=== PATIENT | male | born 1955 | race Caucasian/White ===

== ENCOUNTER 2019-07-16 11:04 | Inpatient (IN) ==
[2019-07-16 11:16] LABS: Basophils # (auto) 0.09 K/uL (0-0.2); Basophils % (auto) 1.1 %; Eosinophils # (auto) 0.19 K/uL (0-0.5); Eosinophils % (auto) 2.3 %; Hematocrit (blood only) 48.9 % (42-52); Hemoglobin 17.8 g/dL (14.0-18.0); Immature Granulocytes # (auto) 0.01 K/uL (0.00-0.02); Immature Granulocytes % (auto) 0.1 %; Lymphocytes # (auto) 2.68 K/uL (1.2-3.4); Lymphocytes % (auto) 32.5 %; Mean Corpuscular Hemoglobin 31.2 pg (25-34); Mean Corpuscular Hgb Conc 36.4 g/dL (32-36); Mean Corpuscular Volume 85.6 fL (80-100); Mean Platelet Volume 10.4 fL (7.4-10.4); Monocytes # (auto) 0.56 K/uL (0.11-0.59); Monocytes % (auto) 6.8 %; Neutrophils # (auto) 4.72 K/uL (1.4-6.5); Neutrophils % (auto) 57.2 %; Platelet Count 260 K/uL (130-400); RDW Coefficient of Variation 13.6 % (11.5-14.5); RDW Standard Deviation 42.5 fL (36.4-46.3); Red Blood Count 5.71 M/uL (4.7-6.1); White Blood Count 8.25 K/uL (4.8-10.8)
--- NOTE | 2019-07-16 11:17 | CT Scan Report ---
CT OF THE HEAD WITHOUT CONTRAST CLINICAL HISTORY: Stroke evaluation slurred speech. Right hand numbness. COMPARISON STUDY: No previous studies for comparison. CT DOSE: 537.48 mGy.cm TECHNIQUE: Helical axial images of the head were obtained without IV contrast. Automated exposure con trol was utilized for the study. A dose lowering technique was utilized adhering to the principles o f ALARA. FINDINGS: No acute intracranial hemorrhage, midline shift or mass effect is present. The ventricular system is unremarkable. The basilar cisterns are patent. No extra-axial collections are present. Ther e are no findings to suggest acute dural sinus thrombosis or acute territorial infarct. No significan t calvarial abnormalities are present. Visualized portions of the sinuses and mastoid air cells are c lear. Mild atrophy is noted. IMPRESSION: No acute intracranial findings. ACT 112: Negative or not required by law. Electronically signed by: Oneal Christianson M.D. 07/16/2019 11:16 AM
[2019-07-16 11:31] LABS: Partial Thromboplastin Time 27.1 Seconds (21.0-31.0); Prothrombin Time 10.2 Seconds (9.0-12.0)
[2019-07-16] MEDS ORDERED: TPA for Stroke IV STA (11:34)
[2019-07-16 11:41] LABS: Alanine Aminotransferase 29 U/L (12-78); Alkaline Phosphatase 107 U/L (45-117); BUN Creatinine Ratio 18.1 (10-20); Bilirubin,Total 0.5 mg/dl (0.2-1); Blood Urea Nitrogen 19 mg/dl (7-18); Calcium 9.3 mg/dl (8.5-10.1); Carbon Dioxide 21 mmol/L (21-32); Chloride 105 mmol/L (98-107); Creatinine Clr Calc Pharmacy 90.4 ml/min; Est GFR (African American) 86.1; Est GFR (Non-African American) 74.3; Globulin 4.1 gm/dl (2.5-4.0); Glucose 299 mg/dl (70-99); Sodium 135 mmol/L (136-145); Total Protein 8.1 gm/dl (6.4-8.2); Troponin I < 0.015 ng/ml (0-0.045)
[2019-07-16 11:43] LABS: Potassium 3.9 mmol/L (3.5-5.1)
[2019-07-16] MEDS ORDERED: Alteplase Bolus 9 MG in SYRINGE 0 ML IV ONE (11:44)
[2019-07-16] MEDS ORDERED: PRIMARY PLUMSET, PE LINED TUBING, 113 IN, NON-DEHP (2260-0500) IV ONE (11:45)
[2019-07-16] MEDS ORDERED: ALTEPLASE, RECOMBINANT 81 MG in EMPTY BAG 0 ML IV ONE (11:45)
[2019-07-16 11:48] LABS: Magnesium 1.8 mg/dl (1.8-2.4)
[2019-07-16] MEDS ORDERED: OPTIRAY 320 125ml IV PRN (12:18)
--- NOTE | 2019-07-16 12:42 | CT Scan Report ---
CT angio head w con, CT angio neck with con CLINICAL HISTORY: 64 years-old Male with stroke, R hand issues. Acute strokelike symptoms COMPARISON STUDY: Head CT of same day TECHNIQUE: Following the IV administration of 120 cc of Optiray 320, CT angiogram of the head and nec k was performed. Images are reviewed in the axial, sagittal, and coronal planes. 3-D MIPS images are created and assessed. IV contrast was administered without complication. All measurements were obtain ed according to NASCET criteria. A dose lowering technique was utilized adhering to the principles of ALARA. CT DOSE: 674.23 mGy.cm FINDINGS: The opacified pulmonary arteries unremarkable. Moderate mixed plaque of the thoracic aortic arch. Patency of the imaged bilateral subclavian arteries. Motion degraded exam. Patent common carot id arteries. Moderate mixed plaque of the carotid bulbs and proximal internal carotid arteries. There is less than 50% luminal narrowing of the proximal right ICA. Atheromatous plaque with filling defec t of the proximal cervical segment left ICA, image 270 series 4 measures up to 6 mm including a cauda l dimension on the coronal reformatted images suspicious for atheromatous plaque with possible free-f loating thrombus/unstable plaque component. There is focal area of 65% luminal narrowing noted at thi s level. By ratios limited secondary to previously mentioned motion artifact. Moderate mixed plaque o f the cavernous segments internal carotid arteries without high-grade stenosis. The bilateral middle and anterior cerebral arteries appear patent. Bilateral vertebral arteries are patent and appear unremarkable. No aneurysm, dissection or proximal branch occlusion. Basilar and posterior cerebral arteries appear patent. Cerebral venous sinuses appe ar patent. There is no abnormal enhancement. Bronchial wall thickening of the lung apices. No pneumothorax. Emphysema. Soft tissues appear unremar kable. Degenerative changes of the spine. IMPRESSION: 1. Motion degraded exam. 2. Moderate mixed plaque of the bilateral carotid bulbs. Within the proximal cervical segment left IC A there is eccentric/unstable plaque versus free floating thrombus measuring up to 6 mm in craniocaud al dimension resulting in 65% luminal narrowing. 3. Otherwise unremarkable CTA of the neck as above. ACT 112: Negative or not required by law. The above report was generated using voice recognition software. It may contain grammatical, syntax o r spelling errors. Electronically signed by: Anson Echeverria M.D. 07/16/2019 12:41 PM
--- NOTE | 2019-07-16 12:43 | Electrocardiogram Report ---
Test Reason : Blood Pressure : / mmHG Vent. Rate : 111 BPM Atrial Rate : 111 BPM P-R Int : 176 ms QRS Dur : 116 ms QT Int : 350 ms P-R-T Axes : 061 031 054 degrees QTc Int : 476 ms Sinus tachycardia Inferior infarct , age undetermined Poor R wave progression, consider anterior LA vs. lead placement vs. LVH Abnormal ECG No previous ECGs available Confirmed by Meng Roy ([id number]) on 07/16/2019 12:42:55 PM Referred By: Confirmed By:Meng Roy
--- NOTE | 2019-07-16 12:47 | History & Physical Report ---
Date of Service July 16, 2019 Assessment & Plan (1) CVA (cerebral vascular accident): Teletroke call in ER. S/P tPA. Admit to ICU - discussed case with Dr Cook Day 1 s/p tPA stroke protocol orders entered CT head - no acute intracranial findings Head/Neck CTA - unstable plaque vs. thrombus in left ICA resulting in 65% luminal narrowing (probable cause of CVA) - discussed with Dr Ulloa (recommended discussing with telestroke) and [place] [facility]; patient felt to have significantly improved dysarthria, no new symptoms. Recommend getting CEA on this admission. ASA + Plavix loading doses at 24 hours. Consider clopidogrel failure enzyme variation testing. Recommend transfer if patient having new symptoms or if vascular request transfer to not perform endarterectomy here. quality assurance monitor final to assess for any a. fib TTE will defer till tomorrow Start atorvastatin 80mg PO daily MRI brain w/ w/o contrast pending (2) Internal carotid artery stenosis: As above. Consult vascular surgery. (3) Type 2 diabetes mellitus: Poorly controlled as per his PCP on glipizide and metformin (placed on hold). HbA1C pending. Consult glycemic control - started on insulin drip. (4) Current smoker: Smoking cessation advice given. Nicotine patch 21mg/24hrs. Education packets ordered (5) Coronary artery disease: Restart ASA after 24 hours, start atorvastatin as above. Consider BB if remains tachycardic despite adequate hydration. (6) DVT prophylaxis: Chemical prophylaxis deferred until 24 hours s/p tPA. SCDs (7) Discharge planning issues: PT/OT/Speech History of Present Illness Chief Complaint: Stroke-like symptoms Primary Care Provider: Connor Bauer MD (based in [place], [place]) Carl Martinez is a 64 year old male smoker with type 2 diabetes who presented to the ER with right hand numbness and weakness slurred speech which started after throwing/tying tarps over his truck at around 9:30am today. He reports never having similar symptoms before and no known stroke in the past but PA approximately 10 years ago. Current smoker 1.5 packs/day and uncontrolled diabetes as risk factors. Since coming to the ER he has noticed some mild improvement in his right arm weakness but no real change in his speech. He takes an aspirin a day ever since his PA but not on statin. He also notes a recent fall 2 week prior when he slipped backwards on the ice and fell on his left arm/chest for which he did not seek medical attention. He did not hit his head or neck directly but resultant whiplash action caused neck pain since then with only some mild improvement. Discussed with his primary care physician (Dr Connor Bauer) on vacation although his office is closed currently and no one has access to his chart from memory he notes the patient is a poorly controlled diabetic mainly due to lack of insurance and ability to pay for medication. He had an PA with emergent stent approximately 10 years ago. He is a heavy smoker. Element of COPD however not on any regular inhalers due to cost. Allergies Allergy/AdvReac Type Severity Reaction Status Date / Time Penicillins Allergy Unknown Unverified 07/16/19 12:09 Home Medications Home Medications Medication Instructions Recorded Confirmed Type aspirin 81 mg PO DAILY 07/16/19 07/16/19 History glipizide 10 mg PO DAILY 07/16/19 07/16/19 History metformin 1,000 mg PO BID 07/16/19 07/16/19 History Past Med/Surg History Medical History (Updated 07/16/19 @ 18:29 by Arcenio Cotton MD) Coronary artery disease Current smoker Internal carotid artery stenosis Myocardial infarction Type 2 diabetes mellitus Surgical History H/O umbilical hernia repair History of cardiac cath History of heart artery stent Family History Other No significant family history Social History Preferred Language: Uzbek Communication Ability: Effective Beliefs That Will Affect Care: Spiritual marital status: Single Current Living Situation: Alone current occupational status: employed Other Information That Helps Us Care for You: No Feels Safe at Home: Yes Safety Concerns: Feels Safe At This Time Smoking Status: Current every day smoker Tobacco Type: cigarettes ; Cigarettes Per Day: 30 ; Tobacco Cessation Education Requested by Patient: No Hx Alcohol Use: No Hx Substance Use: No Review of Systems Review of Systems: All systems reviewed & are unremarkable except as noted in HPI & below Constitutional: + fever (two days ago with associated URI Sx now resolved) Physical Exam Constitutional: well developed, well nourished, + obese and + disheveled; no acute distress Eyes: PERRL, conjunctivae normal, anicteric sclerae ENMT: external ear and nose normal, oropharynx normal Neck: trachea midline, no thyromegaly Respiratory: normal respiratory effort, lungs clear to auscultation Auscultation: no crackles and no wheezes Cardiovascular: RRR, no murmur, no edema Gastrointestinal (Abdomen): normal bowel sounds, soft, nontender, no hepatosplenomegaly Musculoskeletal: Spine: + cervical muscular tenderness (left proximal) Skin: no rashes, warm and dry Neurologic: + focal motor deficit (right wrist flex/ext 1, finger abduc 1, thumb abduc 1, elbow flex/ext 5) and awake; not confused Speech / Cognition: + abnormal speech (dysarthria; difficulty with with mama, deepti < kaka with normal VII otherwis); no receptive aphasia Motor/Sensory: + pronator drift (right) and + sensory deficit (right hand in no one nerve distribution); no tremor Cranial Nerves: PERRL, normal accommodation, EOM intact bilaterally, normal facial strength, able to rotate head bilaterally, able to elevate shoulders bilaterally and no nystagmus Coordination: + abnormal funkkl-gw-mamg test (right due to hand weakness); normal liqd-en-snai test Normal left UE power 5/5 throughout, b/l lower extremity power 5/5 throughout Results & Data Vital Signs (Past 12 Hours) Vital Signs Temp Pulse Pulse Resp BP BP Pulse Ox 07/16/19 12:38 98 H 17 139/80 93 07/16/19 12:30 37.3 C 104 H 24 154/93 H 93 07/16/19 12:23 103 H 07/16/19 12:08 110 H 14 148/94 H 93 07/16/19 11:53 108 H 20 154/79 H 92 07/16/19 11:43 110 H 16 132/84 94 07/16/19 11:41 116 H 18 132/84 94 07/16/19 11:32 95 07/16/19 11:18 36.9 C 111 H 20 136/85 95 Code Status & VTE Plan Code Status Full VTE Prophylaxis Plan VTE Prophylaxis will be ordered: Yes Reason for no VTE drug order: Contraindicated (tPA administered) PG Care Time/CCT Total # of Minutes Spent Total Time Spent with Patient: Total time spent is greater than 50% in coordination of care (as documented) at patient's floor/unit and/or counseling patient: Coding Level of Care Code 50022 Initial Inpt Care Lvl 3 Diagnoses CVA (cerebral vascular accident) I63.9 CVA mechanism: unspecified Internal carotid artery stenosis I65.22 Laterality: left Type 2 diabetes mellitus E11.59 Diabetes mellitus complication detail: with other circulatory complications Diabetes mellitus complication status: with circulatory complication 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 transplanted heart: [place] heart DVT prophylaxis Z29.9 Discharge planning issues Z02.9 (1) Type 2 diabetes mellitus Diabetes mellitus complication detail: with other circulatory complications Diabetes mellitus complication status: with circulatory complication Diabetes mellitus halfway insulin use: without vermin exterminator use Qualified Code(s): E11.59 - Type 2 diabetes mellitus with other circulatory complications (2) Coronary artery disease Associated angina: without angina Coronary Disease-Associated Artery/Lesion type: [place] artery [place] vs. transplanted heart: [place] heart Qualified Code(s): I25.10 - Atherosclerotic heart disease of [place] coronary artery without angina pectoris (3) Internal carotid artery stenosis Laterality: left Qualified Code(s): I65.22 - Occlusion and stenosis of left carotid artery (4) CVA (cerebral vascular accident) CVA mechanism: unspecified Qualified Code(s): I63.9 - Cerebral infarction, unspecified
[2019-07-16] MEDS ORDERED: PHARMACY GLYCEMIC MGMT CONSULT STA (13:40)
[2019-07-16] MEDS ORDERED: NICOTINE POLACRILEX 2 MG GUM MT PRN (13:51)
[2019-07-16] MEDS ORDERED: ICU PROTOCOL FOR HYPERGLYCEMIA PRN (13:51)
[2019-07-16] MEDS ORDERED: PHARMACIST DISCHARGE MED REC CONSULT PRN (13:55)
[2019-07-16] MEDS ORDERED: PHARMACY GLYCEMIC MGMT CONSULT PRN (14:24)
[2019-07-16 14:58] LABS: Estimated Average Glucose 255 mg/dl; Hemoglobin A1C 10.5 % (4.5-5.6)
[2019-07-16] MEDS ORDERED: INSULIN PROTOCOL GOAL RANGE ONE (14:59)
[2019-07-16] MEDS ORDERED: CARBOHYDRATES FOR HYPOGLYCEMIA PO PRN (15:00)
[2019-07-16] MEDS ORDERED: GLUCOSE 40% GEL 15 GM TUBE PO PRN (15:00)
[2019-07-16] MEDS ORDERED: GLUCAGON FOR INJ 1 MG VIAL IM PRN (15:00)
[2019-07-16] MEDS ORDERED: DEXTROSE 50% 50 ML SYRINGE IV PRN (15:00)
[2019-07-16] MEDS ORDERED: GLUCOSE 10 TABS/TUBE PO PRN (15:00)
[2019-07-16] MEDS ORDERED: NovoLIN-R BOLUS FROM BAG IV ONE (15:15)
[2019-07-16] MEDS ORDERED: INSULIN REGULAR 250 UNITS in SODIUM CHLORIDE 0.9% 247.5 ML IV SCH (15:16)
[2019-07-16] MEDS: NICOTINE 21 MG/24 HR TDSY TD SCH (15:21)
[2019-07-16] MEDS: ATORVASTATIN 40 MG TAB PO SCH (15:22)
--- NOTE | 2019-07-16 15:23 | Pharmacy Report ---
Pharmacy Glycemic Short Note 2 - Date of Service July 16, 2019 - Glycemic Short BSG Results (Last 24 hours): 07/16/19 07/16/19 07/16/19 10:40 11:22 14:16 Glucose 299 H POC Glucose 316 H* 275 H OUTPATIENT ANTIDIABETIC REGIMEN: * Glipizide 10mg PO daily * Metformin 1gm PO BID * A1c = ? ASSESSMENT: * Type 2 diabetic admitted for ischemic stroke, now s/p tPA and admitted to ICU * BSGs in the 300s at this time * Pt currently is currently NPO * Will initiate IV insulin drip per protocol at this time given significant hyperglycemia and need for tight glycemic control in the setting of stroke. Quick control of hyperglycemia and avoidance of hypoglycemia can best be accomplished with IV insulin infusion PLAN FOR INPATIENT GLYCEMIC CONTROL: * Check A1c * Hold outpatient oral diabetes medications (metformin + glipizide) * IV insulin infusion, goal range 120-180mg/dL PLAN FOR DISCHARGE: * to be determined
--- NOTE | 2019-07-16 16:02 | Pulmonary Consultation ---
Date of Consultation July 16, 2019 Assessment & Plan (1) CVA (cerebral vascular accident): We will follow the TPA day 1 and day 2 stroke pathway. Will need physical and Occupational Therapy. Will need speech evaluation. N.p.o. for today. Sliding scale insulin given his history of diabetes mellitus. Maintain blood pressure as per post TPA protocol. May need a vascular consult in the future given his internal carotid luminal irregularities. Needs complete smoking cessation. Will be started on aspirin and Plavix tomorrow. CT had 24 hours post TPA will need to be obtained. MRI of the head will also need to be obtained. Echo tomorrow. He is stable currently in the ICU. Continue current care. CRITICAL CARE TIME - I have personally spent 30 minutes of critical care time in the direct management of this patient. This is a life/limb threatening event. This includes time spent evaluating patient, direct bedside care, chart review, placing orders, interpretation of diagnostic studies, discussion with consultants, patient, and family members, as well as other required patient management activities. This time is exclusive of all separately billable procedures, and teaching time and separate from and in addition to any other critical care service time. CVA mechanism: unspecified Qualified Code(s): I63.9 - Cerebral infarction, unspecified (2) Coronary artery disease: Coronary Disease-Associated Artery/Lesion type: [place] artery [place] vs. transplanted heart: [place] heart Associated angina: without angina Qualified Code(s): I25.10 - Atherosclerotic heart disease of [place] coronary artery without angina pectoris (3) Current smoker: (4) Type 2 diabetes mellitus: Diabetes mellitus residential insulin use: without manager intermediate use Diabetes mellitus complication status: with circulatory complication Diabetes mellitus complication detail: with other circulatory complications Qualified Code(s): E11.59 - Type 2 diabetes mellitus with other circulatory complications (5) Internal carotid artery stenosis: History of Present Illness Reason for Consultation: Stroke status post TPA Requesting Physician: Arcenio Cotton Attending Physician: Arcenio Cotton MD History of Present Illness This is an 64-year-old male with a past medical history of tobacco abuse, type 2 diabetes mellitus, obesity and coronary artery disease who presents to the hospital due to right extremity weakness and dysarthria. Patient notes that around 9:30 in the morning he was working throwing tarps on his truck and felt that he had numbness in his right upper extremity. He noticed that his hand was weak. He went to the emergency department and then noticed that he had slurring of his speech. He denies any chest pain, shortness of breath or nausea associated with the symptoms. He does note that about a month ago he had flulike symptoms. He denies any current fevers or chills. He is uncertain whether his symptoms improved after TPA. He did have a CT of his head which was negative for any acute bleed. He received TPA at 11:39 PM. He received a CTA of his head and neck which demonstrated 65% luminal narrowing of the left internal carotid artery. He also had a floating thrombus that was visualized. [facility] tele-stroke was contacted. He was noted that he had improvement dysarthria after TPA administration. Currently he continues to have right upper extremity weakness with some dysarthria. He smokes roughly 1-1/2 packs/day for the last 50 years. He does have chronic mild shortness of breath with occasional cough. He says he was never formally diagnosed with COPD. He denies any history of obstructive sleep apnea. He lives with his mother. 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 Allergies Allergy/AdvReac Type Severity Reaction Status Date / Time Penicillins Allergy Unknown Unverified 07/16/19 12:09 Home Medications Home Medications Medication Instructions Recorded Confirmed Type aspirin 81 mg PO DAILY 07/16/19 07/16/19 History glipizide 10 mg PO DAILY 07/16/19 07/16/19 History metformin 1,000 mg PO BID 07/16/19 07/16/19 History Patient History Medical History Coronary artery disease Current smoker Myocardial infarction Type 2 diabetes mellitus Surgical History H/O umbilical hernia repair History of cardiac cath History of heart artery stent Family History Other No significant family history Social History Preferred Language: [place]an Communication Ability: Effective Beliefs That Will Affect Care: Spiritual marital status: Single Current Living Situation: Alone current occupational status: employed Other Information That Helps Us Care for You: No Feels Safe at Home: Yes Safety Concerns: Feels Safe At This Time Smoking Status: Current every day smoker Tobacco Type: cigarettes ; Cigarettes Per Day: 30 ; Tobacco Cessation Education Requested by Patient: No Hx Alcohol Use: No Hx Substance Use: No Review of Systems Review of Systems: All systems reviewed & are unremarkable except as noted in HPI & below Physical Exam Constitutional: well developed Long hair. Moreno in place. No apparent distress. Laying on his left side in the ICU bed. Eyes: PERRL, conjunctivae normal, anicteric sclerae ENMT: external ear and nose normal, oropharynx normal Right facial droop noted Neck: normal visual inspection Respiratory: normal respiratory effort, lungs clear to auscultation Cardiovascular: RRR, no murmur, no edema Gastrointestinal (Abdomen): normal bowel sounds, soft, nontender, no hepatosplenomegaly Musculoskeletal: no cyanosis or clubbing, extremities motor strength 5/5 Skin: no rashes, warm and dry Neurologic: Right upper extremity weakness. Approximately 3 out of 5 strength. Some dysarthria. No expressive or receptive aphasia apparent. Psychiatric: A+Ox3, euthymic affect Lymphatic: no lymphadenopathy Results & Data ([facility]) Vital Signs (Past 12 Hours) Vital Signs Temp Pulse Pulse Pulse Resp BP BP 07/16/19 15:38 98.1 F 99 H 95 H 18 138/82 138/82 07/16/19 15:23 98.4 F 95 H 18 138/82 07/16/19 15:08 97.9 F 108 H 18 143/84 H 07/16/19 14:43 97.9 F 90 18 142/91 H 07/16/19 14:38 97.9 F 97 H 18 130/88 07/16/19 14:08 97.9 F 99 H 18 127/81 07/16/19 13:38 95 H 18 152/96 H 07/16/19 13:23 99 H 19 131/95 07/16/19 13:08 108 H 22 142/91 H 07/16/19 12:53 101 H 94 H 140/82 07/16/19 12:38 98 H 17 139/80 07/16/19 12:30 99.1 F 104 H 24 154/93 H 07/16/19 12:23 103 H 07/16/19 12:08 110 H 14 148/94 H 07/16/19 11:53 108 H 20 154/79 H 07/16/19 11:43 110 H 16 132/84 07/16/19 11:41 116 H 18 132/84 07/16/19 11:32 07/16/19 11:18 98.4 F 111 H 20 136/85 Pulse Ox 07/16/19 15:38 91 07/16/19 15:23 91 07/16/19 15:08 95 07/16/19 14:43 92 07/16/19 14:38 96 07/16/19 14:08 93 07/16/19 13:38 96 07/16/19 13:23 97 07/16/19 13:08 97 07/16/19 12:53 94 07/16/19 12:38 93 07/16/19 12:30 93 07/16/19 12:23 07/16/19 12:08 93 07/16/19 11:53 92 07/16/19 11:43 94 07/16/19 11:41 94 07/16/19 11:32 95 07/16/19 11:18 95 I personally reviewed his relevant imaging, labs and vital signs. PG Care Time/CCT Total # of Minutes Spent Total Time Spent with Patient: Total time spent is greater than 50% in coordination of care (as documented) at patient's floor/unit and/or counseling patient: Critical Care Time: Yes Total Critical Care Time: 30 Coding Level of Care Code None Diagnoses CVA (cerebral vascular accident) I63.9 CVA mechanism: unspecified Coronary artery disease I25.10 Coronary Disease-Associated Artery/Lesion type: [place] artery [place] vs. transplanted heart: [place] heart Associated angina: without angina Current smoker F17.200 Type 2 diabetes mellitus E11.59 Diabetes mellitus residential insulin use: without residential use Diabetes mellitus complication status: with circulatory complication Diabetes mellitus complication detail: with other circulatory complications Internal carotid artery stenosis I65.29 Additional Codes Critical Care Time - Critical Care Time: Yes ([id number]) Time Spent (min) 30
[2019-07-16] MEDS ORDERED: ACETAMINOPHEN SOL 650 MG/20.3 ML UDC PO PRN (16:41)
[2019-07-16] MEDS ORDERED: ACETAMINOPHEN 325 MG TAB ONE (16:50)
--- NOTE | 2019-07-16 16:50 | Emergency Department Note ---
Entered by Farida Murcia acting as a scribe for Perfecto Lozano M.D. History of Present Illness General Chief complaint: Stroke Alert Source: patient History of Present Illness Onset (ago): hour(s) 1 (and 21 minutes ago) Location: head Pain Consistency: + other (episode) Quality: + other (stroke) Associated symptoms: + denies other symptoms (left arm weakness, left leg weakness, right leg weakness, numbness, vision changes), + weakness (right arm) and + other (slurred speech); no chest pain, no headaches and no nausea/vomiting The patient is a 64 year old male who presents to the Emergency Room with complaints of an episode of a stroke starting an hour and 21 minutes ago. 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 He states that he was tying down his load when he suddenly had right arm weakness and slurred speech. He states that he was unable to really do anything with his right arm. He notes that he did fall on the ice a few weeks ago and hurt his neck, but that is nothing new. He notes that he also had the flu about 2 weeks ago, but his symptoms have resolved. He notes that he takes 81 mg of Aspirin a day and is right handed. The patient denies left arm weakness, left leg weakness, right leg weakness, numbness, chest pain, nausea, vomiting, headache, vision changes, a history of recent surgeries, and a history of a stroke. Home Medications Home Medications Medication Instructions Recorded Confirmed Type aspirin 81 mg PO DAILY 07/16/19 07/16/19 History glipizide 10 mg PO DAILY 07/16/19 07/16/19 History metformin 1,000 mg PO BID 07/16/19 07/16/19 History Allergies Allergy/AdvReac Type Severity Reaction Status Date / Time Penicillins Allergy Unknown Unverified 07/16/19 12:09 Past Med/Surg History Medical History (Updated 07/16/19 @ 16:50 by Perfecto Lozano M.D.) Coronary artery disease Current smoker Internal carotid artery stenosis Myocardial infarction Type 2 diabetes mellitus Surgical History H/O umbilical hernia repair History of cardiac cath History of heart artery stent Family History Other No significant family history Social History Preferred Language: [place]er Communication Ability: Effective Beliefs That Will Affect Care: Spiritual marital status: Single Current Living Situation: Alone current occupational status: employed Other Information That Helps Us Care for You: No Feels Safe at Home: Yes Safety Concerns: Feels Safe At This Time Smoking Status: Current every day smoker Tobacco Type: cigarettes ; Cigarettes Per Day: 30 ; Tobacco Cessation Education Requested by Patient: No Hx Alcohol Use: No Hx Substance Use: No Review of Systems See HPI for pertinent positives & negatives. and A total of 10 systems reviewed and were otherwise negative Physical Exam Vital Signs Vital Signs - 24 hr 07/16/19 11:18 07/16/19 11:32 07/16/19 11:41 Temperature 36.9 C Temperature Source Oral Pulse Rate 111 H Pulse Rate [Radial] 116 H Pulse Rhythm Regular Pulse Rhythm [Radial] Regular Pulse Strength Normal Respiratory Rate 20 18 Respiratory Effort / Characteristics Non-Labored Non-Labored Respiratory Depth Normal Normal Respiratory Pattern Regular Blood Pressure 136/85 Blood Pressure [Left Arm] 132/84 Blood Pressure Mean 102 Blood Pressure Mean [Left Arm] 100 Blood Pressure Position [Left Arm] Pulse Oximetry 95 95 94 Oxygen Delivery Method Room Air Room Air Room Air Oxygen Flow Rate 93 Sepsis Recent Fever Within 48 Hours No Sepsis New/Unexplained Change in Mental Status No Sepsis Action Taken by Nursing No Action Required 07/16/19 11:43 07/16/19 11:53 07/16/19 12:08 Temperature Temperature Source Pulse Rate Pulse Rate [Radial] 110 H 108 H 110 H Pulse Rhythm Pulse Rhythm [Radial] Pulse Strength Respiratory Rate 16 20 14 Respiratory Effort / Characteristics Non-Labored Non-Labored Respiratory Depth Normal Normal Normal Respiratory Pattern Regular Blood Pressure Blood Pressure [Left Arm] 132/84 154/79 H 148/94 H Blood Pressure Mean Blood Pressure Mean [Left Arm] 100 104 112 Blood Pressure Position [Left Arm] Sitting Pulse Oximetry 94 92 93 Oxygen Delivery Method Room Air Room Air Oxygen Flow Rate Sepsis Recent Fever Within 48 Hours Sepsis New/Unexplained Change in Mental Status Sepsis Action Taken by Nursing 07/16/19 12:23 07/16/19 12:30 07/16/19 12:38 Temperature 37.3 C Temperature Source Oral Pulse Rate Pulse Rate [Radial] 103 H 104 H 98 H Pulse Rhythm Pulse Rhythm [Radial] Pulse Strength Respiratory Rate 24 17 Respiratory Effort / Characteristics Non-Labored Spontaneous Non-Labored Respiratory Depth Normal Normal Respiratory Pattern Blood Pressure Blood Pressure [Left Arm] 154/93 H 139/80 Blood Pressure Mean Blood Pressure Mean [Left Arm] 113 99 Blood Pressure Position [Left Arm] Sitting Sitting Pulse Oximetry 93 93 Oxygen Delivery Method Room Air Oxygen Flow Rate Sepsis Recent Fever Within 48 Hours Sepsis New/Unexplained Change in Mental Status Sepsis Action Taken by Nursing GENERAL: Awake, alert, well-appearing, in no distress HENT: Normocephalic, atraumatic. Oropharynx unremarkable. EYES: Normal conjunctiva. Sclera non-icteric. PERRL. NECK: Supple. No nuchal rigidity. RESPIRATORY: Clear to auscultation. No wheezes. Normal respiratory effort. CARDIAC: Tachycardic rate. Normal rhythm. Extremities warm and well perfused. GI: Soft, non-distended. No tenderness to palpation. RECTAL: Deferred. MUSCULOSKELETAL: Atraumatic. Chest examination reveals no tenderness. LOWER EXTREMITIES: Calves are equal size bilaterally and non-tender. No edema NEURO: Mildly slurred speech. No pronator drift. Decreased strength in the right hand and distal forearm, not involving the right shoulder. Intact strength and sensation to lower extremities. SKIN: Warm and dry. No jaundice noted. Course Course 1106: The patient was evaluated in room B1. Patient was sent directly to CT. 1112: Patient returned from CT. A complete history and physical exam was performed. 1114: I discussed the patient's case with Dr. Christianson- Radiology. He states that the patient has a normal head CT. 1115: I discussed the patient's case with Dr. Sierra Nhi Neurology. He is going to evaluate the patient via telestroke. 1134: I reevaluated the patient and spoke to Dr. Briseno. We are all in agreement to administer TPA at this time. It was given at this time. 1136: I reevaluated the patient and he is doing okay. I updated him on his test results and the treatment plan. He verbally agrees and understands. 1223: I discussed the patient's case with Dr. Cook- Engineering Surveyor. He accepts the patient to the unit and will evaluate the patient for further management. 1229: I discussed the patient's case with Dr. Lula SEYMOUR Hospitalist. He will evaluate the patient for further management. 1341: I reevaluated the patient and he is being moved to the unit now. Administered Medications Atorvastatin Calcium (Lipitor) 80 mg PO [facility] Stop: 08/15/19 14:14 Last Admin: 07/16/19 15:22 Dose: 80 mg Documented by: [id number] Insulin Human Regular 250 (units/ Sodium Chloride) 250 mls @ 2.9 mls/hr IV .Q24H [facility], 1928–1983; Protocol Stop: 08/15/19 15:15 Last Admin: 07/16/19 16:04 Dose: 2.9 units/hr, 2.9 mls/hr Documented by: [id number] Cosigned by: [id number] Ioversol (Optiray 320 125ml) 120 ml IV ONCE PRN PRN Reason: Interaction Checking Stop: 07/20/19 12:17 Last Admin: 07/16/19 12:18 Dose: 120 ml Documented by: [id number] Nicotine (Nicoderm Cq) 21 mg TD [facility] Stop: 08/15/19 13:50 Last Admin: 07/16/19 15:21 Dose: 21 mg Documented by: [id number] Discontinued Medications Alteplase, Recombinant (Activase For Stroke) 1 ea IV NOW [facility]; Protocol Stop: 07/16/19 11:35 Last Admin: 07/16/19 12:48 Dose: Not Given Documented by: [id number] Alteplase, Recombinant 9 mg/ (Syringe) 9 mls @ 9 mls/min IV ONCE ONE Stop: 07/16/19 11:45 Last Admin: 07/16/19 11:38 Dose: 9 mls/min Documented by: [id number] Cosigned by: [id number] Alteplase, Recombinant 81 mg/ (EMPTY BAG) 81 mls @ 81 mls/hr IV ONCE ONE Stop: 07/16/19 11:46 Last Infusion: 07/16/19 13:01 Dose: 0 mls/hr Documented by: [id number] Cosigned by: [id number] Admin: 07/16/19 11:39 Dose: 81 mls/hr Documented by: [id number] Cosigned by: [id number] Insulin Human Regular (Novolin R Bolus From Bag) 3 units IV ONE ONE Stop: 07/16/19 15:16 Last Admin: 07/16/19 16:08 Dose: 3 units Documented by: [id number] Cosigned by: [id number] Miscellaneous (Insulin Protocol Goal Range) 1 ea N/A ONE ONE Stop: 07/16/19 15:00 Last Admin: 07/16/19 16:08 Dose: 1 ea Documented by: [id number] Miscellaneous Information (Consult Glycemic Management Pharmacy) 1 ea N/A NOW STA Stop: 07/16/19 13:41 Last Admin: 07/16/19 16:09 Dose: 1 ea Documented by: [id number] Critical Care Time Critical Care Time: Yes Total Critical Care Time: 37 I have personally spent 37 minutes of critical care time in the direct management of this patient. This includes bedside care, interpretation of diagnostic studies, and testing, discussion with consultants, patient, and family members, and other required patient management activities. This 37 minutes is in excess of all separately billable procedures. Medical Decision Making Differential Diagnosis Differential Diagnosis includes but is not limited to ischemic Stroke, hemorrhagic stroke, bells palsy, mass, neoplasm, migraine headache, seizure, subarachnoid hemorrhage, TIA, and transient global amnesia. Medical Records Attestation: I reviewed the patient's medical records. Home Medications Current Medication List: was personally reviewed by me Laboratory Data Attestation: I reviewed the patient's lab results. Result diagrams: 07/16/19 10:40 07/16/19 10:40 Lab Results 07/16/19 07/16/19 07/16/19 Range/Units 10:40 10:40 10:40 WBC 8.25 (4.8-10.8) K/uL RBC 5.71 (4.7-6.1) M/uL Hgb 17.8 (14.0-18.0) g/dL Hct 48.9 (42-52) % MCV 85.6 (80-100) fL MCH 31.2 (25-34) pg MCHC 36.4 H (32-36) g/dL RDW Std Deviation 42.5 (36.4-46.3) fL RDW Coeff of Sheron 13.6 (11.5-14.5) % Plt Count 260 (130-400) K/uL MPV 10.4 (7.4-10.4) fL Immature Gran % (Auto) 0.1 % Neut % (Auto) 57.2 % Lymph % (Auto) 32.5 % [place] % (Auto) 6.8 % Eos % (Auto) 2.3 % Baso % (Auto) 1.1 % Immature Gran # (Auto) 0.01 (0.00-0.02) K/uL Neut # (Auto) 4.72 (1.4-6.5) K/uL Lymph # (Auto) 2.68 (1.2-3.4) K/uL [place] # (Auto) 0.56 (0.11-0.59) K/uL Eos # (Auto) 0.19 (0-0.5) K/uL Baso # (Auto) 0.09 (0-0.2) K/uL PT 10.2 (9.0-12.0) Seconds INR 1.0 (0.9-1.1) APTT 27.1 (21.0-31.0) Seconds PTT Ratio 1.0 Sodium 135 L (136-145) mmol/L Potassium (3.5-5.1) mmol/L Chloride 105 (98-107) mmol/L Carbon Dioxide 21 (21-32) mmol/L Anion Gap 10.0 (3-11) BUN 19 H (7-18) mg/dl Creatinine 1.06 (0.6-1.4) mg/dl Est Cr Clr Drug Dosing 90.4 ml/min Est GFR ( Amer) 86.1 Est GFR (Non-Af Amer) 74.3 BUN/Creatinine Ratio 18.1 (10-20) Glucose 299 H (70-99) mg/dl POC Glucose (70-99) mg/dl Estimat Average Glucose mg/dl Hemoglobin A1c (4.5-5.6) % Calcium 9.3 (8.5-10.1) mg/dl Magnesium (1.8-2.4) mg/dl Total Bilirubin 0.5 (0.2-1) mg/dl AST (15-37) U/L ALT 29 (12-78) U/L Alkaline Phosphatase 107 (45-117) U/L Troponin I < 0.015 (0-0.045) ng/ml Total Protein 8.1 (6.4-8.2) gm/dl Albumin 4.0 (3.4-5.0) gm/dl Globulin 4.1 H (2.5-4.0) gm/dl Albumin/Globulin Ratio 1.0 (0.9-2) Blood Type Antibody Screen 07/16/19 07/16/19 07/16/19 Range/Units 10:40 10:40 11:17 WBC (4.8-10.8) K/uL RBC (4.7-6.1) M/uL Hgb (14.0-18.0) g/dL Hct (42-52) % MCV (80-100) fL MCH (25-34) pg MCHC (32-36) g/dL RDW Std Deviation (36.4-46.3) fL RDW Coeff of Sheron (11.5-14.5) % Plt Count (130-400) K/uL MPV (7.4-10.4) fL Immature Gran % (Auto) % Neut % (Auto) % Lymph % (Auto) % [place] % (Auto) % Eos % (Auto) % Baso % (Auto) % Immature Gran # (Auto) (0.00-0.02) K/uL Neut # (Auto) (1.4-6.5) K/uL Lymph # (Auto) (1.2-3.4) K/uL [place] # (Auto) (0.11-0.59) K/uL Eos # (Auto) (0-0.5) K/uL Baso # (Auto) (0-0.2) K/uL PT (9.0-12.0) Seconds INR (0.9-1.1) APTT (21.0-31.0) Seconds PTT Ratio Sodium (136-145) mmol/L Potassium 3.9 (3.5-5.1) mmol/L Chloride (98-107) mmol/L Carbon Dioxide (21-32) mmol/L Anion Gap (3-11) BUN (7-18) mg/dl Creatinine (0.6-1.4) mg/dl Est Cr Clr Drug Dosing ml/min Est GFR ( Amer) Est GFR (Non-Af Amer) BUN/Creatinine Ratio (10-20) Glucose (70-99) mg/dl POC Glucose (70-99) mg/dl Estimat Average Glucose 255 mg/dl Hemoglobin A1c 10.5 H (4.5-5.6) % Calcium (8.5-10.1) mg/dl Magnesium 1.8 (1.8-2.4) mg/dl Total Bilirubin (0.2-1) mg/dl AST 11 L (15-37) U/L ALT (12-78) U/L Alkaline Phosphatase (45-117) U/L Troponin I (0-0.045) ng/ml Total Protein (6.4-8.2) gm/dl Albumin (3.4-5.0) gm/dl Globulin (2.5-4.0) gm/dl Albumin/Globulin Ratio (0.9-2) Blood Type A Positive Antibody Screen NEGATIVE 07/16/19 Range/Units 11:22 WBC (4.8-10.8) K/uL RBC (4.7-6.1) M/uL Hgb (14.0-18.0) g/dL Hct (42-52) % MCV (80-100) fL MCH (25-34) pg MCHC (32-36) g/dL RDW Std Deviation (36.4-46.3) fL RDW Coeff of Sheron (11.5-14.5) % Plt Count (130-400) K/uL MPV (7.4-10.4) fL Immature Gran % (Auto) % Neut % (Auto) % Lymph % (Auto) % [place] % (Auto) % Eos % (Auto) % Baso % (Auto) % Immature Gran # (Auto) (0.00-0.02) K/uL Neut # (Auto) (1.4-6.5) K/uL Lymph # (Auto) (1.2-3.4) K/uL [place] # (Auto) (0.11-0.59) K/uL Eos # (Auto) (0-0.5) K/uL Baso # (Auto) (0-0.2) K/uL PT (9.0-12.0) Seconds INR (0.9-1.1) APTT (21.0-31.0) Seconds PTT Ratio Sodium (136-145) mmol/L Potassium (3.5-5.1) mmol/L Chloride (98-107) mmol/L Carbon Dioxide (21-32) mmol/L Anion Gap (3-11) BUN (7-18) mg/dl Creatinine (0.6-1.4) mg/dl Est Cr Clr Drug Dosing ml/min Est GFR ( Amer) Est GFR (Non-Af Amer) BUN/Creatinine Ratio (10-20) Glucose (70-99) mg/dl POC Glucose 316 H* (70-99) mg/dl Estimat Average Glucose mg/dl Hemoglobin A1c (4.5-5.6) % Calcium (8.5-10.1) mg/dl Magnesium (1.8-2.4) mg/dl Total Bilirubin (0.2-1) mg/dl AST (15-37) U/L ALT (12-78) U/L Alkaline Phosphatase (45-117) U/L Troponin I (0-0.045) ng/ml Total Protein (6.4-8.2) gm/dl Albumin (3.4-5.0) gm/dl Globulin (2.5-4.0) gm/dl Albumin/Globulin Ratio (0.9-2) Blood Type Antibody Screen Imaging Data Radiologist's Impression: Radiology results as stated below per my review and the radiologist's interpretation: CT OF THE HEAD WITHOUT CONTRAST CLINICAL HISTORY: Stroke evaluation slurred speech. Right hand numbness. COMPARISON STUDY: No previous studies for comparison. CT DOSE: 537.48 mGy.cm TECHNIQUE: Helical axial images of the head were obtained without IV contrast. Automated exposure control was utilized for the study. A dose lowering technique was utilized adhering to the principles of ALARA. FINDINGS: No acute intracranial hemorrhage, midline shift or mass effect is present. The ventricular system is unremarkable. The basilar cisterns are patent. No extra-axial collections are present. There are no findings to suggest acute dural sinus thrombosis or acute territorial infarct. No significant calvarial abnormalities are present. Visualized portions of the sinuses and mastoid air cells are clear. Mild atrophy is noted. IMPRESSION: No acute intracranial findings. ACT 112: Negative or not required by law. Electronically signed by: Oneal Christianson M.D. 07/16/2019 11:[address] angio head w con, CT angio neck with con CLINICAL HISTORY: 64 years-old Male with stroke, R hand issues. Acute strokelike symptoms COMPARISON STUDY: Head CT of same day TECHNIQUE: Following the IV administration of 120 cc of Optiray 320, CT angiogram of the head and neck was performed. Images are reviewed in the axial, sagittal, and coronal planes. 3-D MIPS images are created and assessed. IV contrast was administered without complication. All measurements were obtained according to NASCET criteria. A dose lowering technique was utilized adhering to the principles of ALARA. CT DOSE: 674.23 mGy.cm FINDINGS: The opacified pulmonary arteries unremarkable. Moderate mixed plaque of the thoracic aortic arch. Patency of the imaged bilateral subclavian ar teries. Motion degraded exam. Patent common carotid arteries. Moderate mixed plaque of the carotid bulbs and proximal internal carotid arteries. There is less than 50% luminal narrowing of the proximal right ICA. Atheromatous plaque with filling defect of the proximal cervical segment left ICA, image 270 series 4 measures up to 6 mm including a caudal dimension on the coronal reformatted images suspicious for atheromatous plaque with possible free-floating thrombus/unstable plaque component. There is focal area of 65% luminal narrowing noted at this level. By ratios limited secondary to previously mentioned motion artifact. Moderate mixed plaque of the cavernous segments internal carotid art eries without high-grade stenosis. The bilateral middle and anterior cerebral arteries appear patent. Bilateral vertebral arteries are patent and appear unremarkable. No aneurysm, dissection or proximal branch occlusion. Basilar and posterior cerebral arteries appear patent. Cerebral venous sinuses appear patent. There is no abnormal enhancement. Bronchial wall thickening of the lung apices. No pneumothorax. Emphysema. Soft tissues appear unremarkable. Degenerative changes of the spine. IMPRESSION: 1. Motion degraded exam. 2. Moderate mixed plaque of the bilateral carotid bulbs. Within the proximal cervical segment left ICA there is eccentric/unstable plaque versus free floating thrombus measuring up to 6 mm in craniocaudal dimension resulting in 65% luminal narrowing. 3. Otherwise unremarkable CTA of the neck as above. ACT 112: Negative or not required by law. The above report was generated using voice recognition software. It may contain grammatical, syntax or spelling errors. Electronically signed by: Anson Echeverria M.D. 07/16/2019 12:41 PM ECG Data Attestation: I personally reviewed and interpreted this ECG as follows: Indication: + weakness Rate (beats per minute): 111 Rhythm: + sinus tachycardia ECG Gonzales: + Normal ECG ST segments: no ST depression and no ST elevation ECG Findings: no PVCs Blood Pressure Blood Pressure Findings: Elevated blood pressure Blood Pressure Disposition: further management by hospitalist CARMELITA Narrative Patient is a 64-year-old gentleman with a history of cardiac disease and diabetes presenting via EMS as a stroke alert. Around 945a was okay and then developed sudden onset slurred speech and right hand weakness. No trauma or other fevers reported. Patient denies trauma. Moving the right upper arm okay in the lower extremities. No pronator drift. Some mild dysarthria but no real aphasia. Patient without significant facial droop. Right hand is flaccid. Left upper extremity is working well. CT the head stroke alert protocol was without acute finding. Discussed with Nhi tele-stroke. Initially there was some report that he had some left facial numbness but patient later denied this. Tele-stroke completed given concern for stroke risk and benefits discussed patient TPA administered. CTAs of the head and neck were completed. Basic labs without acute pathology. Patient will require admission for further evaluation status post TPA. CTAs do show ICA intramural thrombus requiring further vascular consultation in the future. Impression & Plan Stroke, Weakness of right hand Discharge Plan Visit Data *Final* Discharge Date/Time: 07/16/19 13:40 Chief Complaint: Stroke Alert ED Provider: Perfecto Lozano Discharge Problem: Stroke, Weakness of right hand Patient Disposition: Admitted As Inpatient Discharge Instructions Interventions: ED Discharge Assessment Last Done: 07/16/19 13:40 Discharge Problem: Stroke Qualifiers: CVA mechanism: unspecified Qualified Code(s): I63.9 - Cerebral infarction, unspecified The scribe's documentation has been prepared under my direction and personally reviewed by me in its entirety. I confirm that the note above accurately reflects all work, treatment, procedures, and medical decision making performed by me.
[2019-07-16] MEDS: INSULIN ASPART 100 UNITS/ML 3 ML PEN SC SCH ×2 (17:11→20:50)
[2019-07-16] MEDS: LACTATED RINGER'S 1,000 ML IV SCH (18:52)
[2019-07-16] MEDS ORDERED: GADOBUTROL 65ML VIAL IV PRN (20:20)
--- NOTE | 2019-07-16 20:39 | Magnetic Resonance Report ---
MRI OF THE BRAIN COMBO CLINICAL HISTORY: Strokelike symptoms. Right hand numbness. COMPARISON STUDY: CT of the brain dated 07/16/2019. TECHNIQUE: MRI of the brain was performed utilizing various T1 and T2-weighted sequences in the axial , sagittal, and coronal planes. Contrast-enhanced sequences were acquired following the administratio n of 8 cc of Gadavist. FINDINGS: Brain parenchyma: There is age-related involutional change noting mild subcortical and periventricula r microangiopathic disease. There are numerous small foci of restricted diffusion identified in the l eft frontal and parietal cortex consistent with acute to subacute ischemia. There is no hemorrhage or mass effect. No enhancing mass lesion is identified on the postcontrast images. No extra-axial fluid collection is seen. The cerebellar tonsils are normal in configuration. Ventricles, sulci, and cisterns: Prominent secondary to involutional change. Pituitary and sella: Unremarkable. Intracranial vasculature: Normal flow voids are maintained at the skull base. Orbits: The bony orbits are grossly intact. Orbital contents are normal in appearance. Sinuses and mastoids: Clear. Calvarium: Unremarkable. Cervical cord: Partially visualized cervical spinal cord is normal in morphology and signal intensity . IMPRESSION: 1. There are numerous small foci of restricted diffusion identified in the left frontal and parietal cortex consistent with acute to subacute ischemia. 2. There is no hemorrhage or mass effect. ACT 112: Negative or not required by law. Electronically signed by: Allen Joya M.D. 07/16/2019 8:38 PM
--- NOTE | 2019-07-16 20:56 | XRay Report ---
SINGLE VIEW CHEST CLINICAL HISTORY: Stroke. Fall. FINDINGS: An AP, portable, upright chest radiograph is obtained. No prior studies are available for c omparison at the time of dictation. The examination is degraded by portable technique and patient rot ation. The heart is top normal for projection. There is fullness of the pulmonary vasculature. Atele ctasis is seen at the lung bases. No airspace consolidation or large pleural effusion is identified. No pneumothorax is seen. The skeletal structures are osteopenic. The bony thorax is grossly intact. IMPRESSION: 1. There is prominence of the pulmonary vasculature. Correlate clinically for evidence of mild conges tive failure. 2. No airspace consolidation or large pleural effusion is identified. ACT 112: Negative or not required by law. Electronically signed by: Allen Joya M.D. 07/16/2019 8:54 PM
--- NOTE | 2019-07-17 07:21 | Hospitalist Progress Note ---
Date of Service July 17, 2019 Assessment & Plan (1) CVA (cerebral vascular accident): Continue stroke protocol; Continue ICU; Patient switched from atorvastatin to Zetia 10 mg p.o. daily because he tried 3 various statins and had several days after ingestion severe issues with his lower extremities and ability to walk. Patient reports having a muscle pains after taking statins. Patient tries simvastatin, pravastatin, and Crestor. CT scan of the head repeated and negative; Case discussed with Dr. Villalba who recommended endarterectomy tomorrow p.m. N.p.o. after midnight for the Dr. Villalba's procedure. Continue aspirin 81mg P.O. for 3 weeks and start loading dose of Plavix 300 mg p.o. x1 and then 75 mg p.o. daily indefinitely unless side effects with bleeding and bruising or hemorrhaging. Continue cafeteria monitor; TTE: Left ventricular systolic function is normal. No regional wall motion abnormality noted. Ejection fraction 50 to 55%. Injection of contrast documented no intra-arterial shunt. (2) Internal carotid artery stenosis: As above. Consult vascular surgery. (3) Type 2 diabetes mellitus: Poorly controlled as per his PCP on glipizide and metformin (placed on hold). HbA1C pending. Consult glycemic control - started on insulin drip. (4) Current smoker: Smoking cessation advice given. Nicotine patch 21mg/24hrs. Education packets ordered (5) Coronary artery disease: Restart ASA after 24 hours, start atorvastatin as above. Consider BB if remains tachycardic despite adequate hydration. (6) DVT prophylaxis: Chemical prophylaxis deferred until 24 hours s/p tPA. SCDs (7) Discharge planning issues: PT/OT/Speech Subjective . Patient seen and examined at the bedside. He is now under ICU care multifocal acute ischemic infarcts within the left cerebral hemisphere related to a hemodynamically significant stenosis of the left internal carotid artery/carotid embolism with possibly elements of watershed infarcts as well. Patient received TPA in the emergency department. His aphasia is improving today and he is able to speak fully without issues. He said that his right upper extremity still has some weakness but he cannot lifted revealing fully and move it. The strength in the right hand is decreased. Patient reports that there is no issues with his lower extremities. Patient does not have face droop. P.o. intake is good. Patient denies any signs of bleeding either melena, hematemesis, hemoptysis, nosebleed, hematuria, or hematochezia. Patient denies fever, chills, chest pain, shortness of breath, abdominal pain, frequency, urgency. Review of Systems Review of Systems: All systems reviewed & are unremarkable except as noted in HPI & below Physical Exam Constitutional: well developed, well nourished, + obese and + disheveled; no acute distress Eyes: PERRL, conjunctivae normal, anicteric sclerae ENMT: external ear and nose normal, oropharynx normal Neck: trachea midline, no thyromegaly normal visual inspection Respiratory: normal respiratory effort, lungs clear to auscultation Auscultation: no crackles and no wheezes Cardiovascular: RRR, no murmur, no edema Gastrointestinal (Abdomen): normal bowel sounds, soft, nontender, no hepatosplenomegaly Musculoskeletal: no cyanosis or clubbing, extremities motor strength 5/5 Spine: + cervical muscular tenderness (left proximal) Skin: no rashes, warm and dry Neurologic: + focal motor deficit (right wrist flex/ext 1, finger abduc 1, thumb abduc 1, elbow flex/ext 5-improving) and awake; not confused Speech / Cognition: + abnormal speech (dysarthria; difficulty with with mama, deepti < kaka with normal VII otherwis); no receptive aphasia Motor/Sensory: + pronator drift (right) and + sensory deficit (right hand in no one nerve distribution); no tremor Cranial Nerves: PERRL, normal accommodation, EOM intact bilaterally, normal facial strength, able to rotate head bilaterally, able to elevate shoulders bilaterally and no nystagmus Coordination: + abnormal oudois-ix-ruuj test (right due to hand weakness); normal vhum-yv-pron test Psychiatric: A+Ox3, euthymic affect Lymphatic: no lymphadenopathy Results & Data ([facility]) Vital Signs (Past 12 Hours) Vital Signs Temp Pulse Resp BP Pulse Ox 07/17/19 06:38 84 18 123/70 93 07/17/19 05:38 69 16 119/76 93 07/17/19 04:38 36.7 C 73 18 112/74 95 07/17/19 03:38 71 18 114/67 90 07/17/19 02:38 83 18 120/72 94 07/17/19 01:38 78 16 124/72 91 07/17/19 00:38 70 18 112/63 89 L 07/16/19 23:38 36.6 C 71 16 98/61 L 90 07/16/19 22:38 81 18 124/75 92 07/16/19 21:38 85 18 120/96 94 07/16/19 20:38 36.7 C 89 18 127/75 93 07/16/19 19:38 91 H 18 127/72 91 PG Care Time/CCT Total # of Minutes Spent Total Time Spent with Patient: Total time spent is greater than 50% in coordination of care (as documented) at patient's floor/unit and/or counseling patient: Coding Level of Care Code 41803 Subseq Hosp Care Lvl 3 Diagnoses CVA (cerebral vascular accident) I63.9 CVA mechanism: unspecified Internal carotid artery stenosis I65.22 Laterality: left Type 2 diabetes mellitus E11.59 Diabetes mellitus complication detail: with other circulatory complications Diabetes mellitus complication status: with circulatory complication 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 transplanted heart: [place] heart DVT prophylaxis Z29.9 Discharge planning issues Z02.9 (1) Type 2 diabetes mellitus Diabetes mellitus complication detail: with other circulatory complications Diabetes mellitus complication status: with circulatory complication Diabetes mellitus [facility] insulin use: without [facility] use Qualified Code(s): E11.59 - Type 2 diabetes mellitus with other circulatory complications (2) Coronary artery disease Associated angina: without angina Coronary Disease-Associated Artery/Lesion type: [place] artery [place] vs. transplanted heart: [place] heart Qualified Code(s): I25.10 - Atherosclerotic heart disease of [place] coronary artery without angina pectoris (3) Internal carotid artery stenosis Laterality: left Qualified Code(s): I65.22 - Occlusion and stenosis of left carotid artery (4) CVA (cerebral vascular accident) CVA mechanism: unspecified Qualified Code(s): I63.9 - Cerebral infarction, unspecified
[2019-07-17] MEDS: LACTATED RINGER'S 1,000 ML IV SCH (07:24)
[2019-07-17] MEDS ORDERED: INSULIN GLARGINE SOLOSTAR 100 UNITS/ML 3 ML PEN SC ONE (08:00)
[2019-07-17] MEDS: ATORVASTATIN 40 MG TAB PO SCH (08:16)
[2019-07-17] MEDS ORDERED: ASPIRIN 81 MG ECTAB PO SCH (09:00)
--- NOTE | 2019-07-17 09:05 | Critical Care Progress Note ---
Date of Service July 17, 2019 Assessment & Plan (1) CVA (cerebral vascular accident): Continue post TPA protocol. Day [address] head will be obtained this afternoon. Will start Plavix 24 hours after TPA. MRI is consistent with stroke. Patient will need vascular intervention for internal carotid artery stenosis and possible endarterectomy. I did discuss smoking cessation with him as well. Expect that he may be able to move out of the ICU later today. He will need continued physical therapy and Occupational Therapy. (2) Coronary artery disease: (3) Current smoker: (4) Type 2 diabetes mellitus: (5) Internal carotid artery stenosis: Subjective Patient speech is much improved today. He still complains of right hand and arm weakness. He has no chest pain. He denies any fevers, chills, night sweats or nausea. Physical Exam Constitutional: well developed Eyes: PERRL, conjunctivae normal, anicteric sclerae ENMT: external ear and nose normal, oropharynx normal Neck: normal visual inspection Respiratory: normal respiratory effort, lungs clear to auscultation Cardiovascular: RRR, no murmur, no edema Gastrointestinal (Abdomen): normal bowel sounds, soft, nontender, no h epatosplenomegaly Musculoskeletal: no cyanosis or clubbing, extremities motor strength 5/5 Skin: no rashes, warm and dry Neurologic: Speech is greatly improved from yesterday. He continues to have 1 out of 5 weakness in the right hand and arm. Psychiatric: A+Ox3, euthymic affect Lymphatic: no lymphadenopathy Results & Data ([facility]) Vital Signs (Past 12 Hours) Vital Signs Temp Pulse Resp BP Pulse Ox 07/17/19 06:38 84 18 123/70 93 07/17/19 05:38 69 16 119/76 93 07/17/19 04:38 98.1 F 73 18 112/74 95 07/17/19 03:38 71 18 114/67 90 07/17/19 02:38 83 18 120/72 94 07/17/19 01:38 78 16 124/72 91 07/17/19 00:38 70 18 112/63 89 L 07/16/19 23:38 97.9 F 71 16 98/61 L 90 07/16/19 22:38 81 18 124/75 92 07/16/19 21:38 85 18 120/96 94 Coding Level of Care Code 66751 Subseq Hosp Care Lvl 2 Diagnoses CVA (cerebral vascular accident) I63.9 CVA mechanism: unspecified Coronary artery disease I25.10 Coronary Disease-Associated Artery/Lesion type: [place] artery [place] vs. 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
--- NOTE | 2019-07-17 09:21 | Pharmacy Report ---
Pharmacy Glycemic Short Note 2 - Date of Service July 17, 2019 - Glycemic Short BSG Results (Last 24 hours): 07/16/19 07/16/19 07/16/19 10:40 11:22 14:16 Glucose 299 H POC Glucose 316 H* 275 H 07/16/19 07/16/19 07/16/19 16:07 17:04 18:03 Glucose POC Glucose 240 H 203 H 225 H 07/16/19 07/16/19 07/16/19 19:04 20:41 21:48 Glucose POC Glucose 187 H 168 H 205 H 07/16/19 07/17/19 07/17/19 22:43 00:05 01:16 Glucose POC Glucose 183 H 135 H 138 H 07/17/19 07/17/19 07/17/19 02:08 03:23 04:59 Glucose POC Glucose 158 H 130 H 142 H 07/17/19 07:18 Glucose POC Glucose 171 H OUTPATIENT ANTIDIABETIC REGIMEN: * Glipizide 10mg PO daily * Metformin 1gm PO BID * A1c = 10.5% ASSESSMENT: 07/17 * A1c resulted, consistent w/ poor glycemic control prior to admission on outpt oral hypoglycemic regimen * Insulin drip continues this AM, running at 2.5units/hr and BSGs in goal range * Pt is ordered a diet, will begin to transition to SQ regimen at this time * Initial basal/bolus regimen doses will be based upon moderate stress level and weight 2/ * Type 2 diabetic admitted for ischemic stroke, now s/p tPA and admitted to ICU * BSGs in the 300s at this time * Pt is currently NPO * Will initiate IV insulin drip per protocol at this time given significant hyperglycemia and need for tight glycemic control in the setting of stroke. Quick control of hyperglycemia and avoidance of hypoglycemia can best be accomplished with IV insulin infusion PLAN FOR INPATIENT GLYCEMIC CONTROL: * Hold outpatient oral diabetes medications (metformin + glipizide) * Lantus 20 units x 1 * Discontinue IV insulin drip 4 hrs after Lantus given (drip to dc at lunchtime) * Lantus SQ BID per the following scale initially: * 0 units if BSG less than 120 * 10 units if BSG 120-180 * 15 units if BSG above 180 * Novolog SQ ACHS and at 0000 + 0400 initially * Goal range: 110-140mg/dL * Correction factor: 20mg/dL * Carb ratio: 1 unit per 7 gm CHO consumed with meals PLAN FOR DISCHARGE: * given poor glycemic control with outpt regimen, A1c greater than 10 and recent stroke, one should consider the use of metformin + basal insulin + (GLP1-Ag or prandial insulin) on discharge.
--- NOTE | 2019-07-17 09:50 | Neurology Consultation ---
Date of Consultation July 17, 2019 Assessment & Plan (1) Stroke: Multifocal acute ischemic infarcts within the left cerebral hemisphere related to a hemodynamically significant stenosis of the left internal carotid artery/carotid embolism with possibly elements of watershed infarcts as well. Patient received TPA in the emergency department. He continues to exhibit an aphasia although this issue is modestly improved. He continues to exhibit significant weakness of the distal right upper extremity, not much improvement status post TPA. Stroke risk factors for this patient include diabetes mellitus which appears to be suboptimally controlled and long-term heavy cigarette smoking. Antiplatelet therapy should be started 24 hours after administration of TPA. Clopidogrel would be appropriate. Follow-up with vascular surgery consultation. In speaking with the patient it sounds like there are plans for carotid endarterectomy to be done this Monday. I agree with high-dose atorvastatin at this time. However, patient does inform me that he has a history of intolerance to multiple statin trials in the past. Tolerability will need to be monitored going forward. Continue to monitor patient's blood pressure. Current blood pressure appropriate. Avoid aggressive treatment of hypertension to lower the risk of hypoperfusion injury. Continue management of hyperglycemia related to patient's diabetes mellitus. Smoking cessation will need to be stressed with this patient. 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 Patient aware of this potential outcome. Consultations with PT/OT/speech therapy. Plan for repeat CT of the head today to reassess for hemorrhagic conversion following administration of TPA. History of Present Illness Reason for Consultation: Stroke, status post TPA Requesting Physician: Arcenio Cotton MD Attending Physician: Analisa Rice MD History of Present Illness The patient is a 64-year-old male with a chief complaint of weakness of the ri ght hand and arm which began acutely about 80 minutes prior to his arrival in the emergency department. 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 He also noticed that he was having difficulty with speech/word finding when attempting to make a call for help. He does not report having any weakness of the legs and was able to stand at the time of symptom onset. There was no associated loss of consciousness, fall, or injury. He does not report experiencing any associated disturbance of vision. His symptoms were persistent and noted at the time of his assessment in the emergency department. His blood pressure was only slightly elevated. Past medical history notable for coronary artery disease/[place] and type 2 diabetes mellitus complicated by mild diabetic peripheral neuropathy. He reports a history of intolerance to statins. His physicians are in [place]. He does take glipizide and metformin for his diabetes. He also takes a daily low-dose aspirin. His serum glucose has been elevated since admission. A CT of the head completed during his initial assessment was negative for hemorrhage or acute process. CT angiography of the head and neck revealed a plaque/thrombus within the proximal cervical segment of the left internal carotid artery resulting in 65% luminal narrowing. The patient did have a tele-stroke consultation and was administered TPA. The patient indicates that his speech difficulty has significantly improved although he continues to report significant weakness of the right hand. He also complains of a low-grade headache, primarily left occipital region. Vascular surgery has been consulted for probable left carotid endarterectomy. Allergies Allergy/AdvReac Type Severity Reaction Status Date / Time Penicillins Allergy Unknown Unverified 07/16/19 12:09 Home Medications Home Medications Medication Instructions Recorded Confirmed Type aspirin 81 mg PO DAILY 07/16/19 07/16/19 History glipizide 10 mg PO DAILY 07/16/19 07/16/19 History metformin 1,000 mg PO BID 07/16/19 07/16/19 History Patient History Medical History Coronary artery disease Current smoker Internal carotid artery stenosis Myocardial infarction Type 2 diabetes mellitus Surgical History H/O umbilical hernia repair History of cardiac cath History of heart artery stent Family History (Updated 07/17/19 @ 09:28 by Brain Ulloa MD) Father Coronary heart disease Other No significant family history Social History Preferred Language: [place] Communication Ability: Effective Beliefs That Will Affect Care: Spiritual marital status: Single Current Living Situation: Alone current occupational status: employed Other Information That Helps Us Care for You: No Feels Safe at Home: Yes Safety Concerns: Feels Safe At This Time Smoking Status: Current every day smoker Tobacco Type: cigarettes ; Cigarettes Per Day: 30 ; Tobacco Cessation Education Requested by Patient: No Hx Alcohol Use: No Hx Substance Use: No Review of Systems Constitutional: no fever, no chills and no fatigue Eyes: no blind spots and no diplopia Ear, Nose, Mouth, Throat: no hearing loss Respiratory: no cough and no dyspnea Cardiovascular: no chest pain and no palpitations Gastrointestinal: no nausea and no vomiting Genitourinary: + urinary incontinence Musculoskeletal: no neck pain and no myalgia Integumentary: no rash and no lesions Neurologic: as per Subjective / HPI, + localized weakness, + headache(s) and + abnormal speech; no confusion and no memory loss Psychiatric: no depression and no anxiety Hematologic / Lymphatic: no easy bleeding and no easy bruising Physical Exam Physical Exam: The patient is a well-developed, well-nourished elderly male. He is alert and fully oriented. Recent and remote memory intact. Attention and concentration normal. Patient exhibits mild hesitancy with object naming and casual speech. He is able to repeat phrases. He exhibited some left right confusion, no finger agnosia or acalculia, however. Fund of knowledge normal. Comprehension of vocabulary intact. Visual churchill full to confrontation. Visual acuity normal. Pupils equal round reactive to light and accommodation. Eye movements normal. There is no nystagmus, ptosis, or ophthalmoplegia. Facial sensation intact. There is a right lower facial droop noted. Hearing intact. Palate elevates to midline. Shoulder shrug intact. Tongue protrudes to midline. There is a mild length dependent deficit to all sensory modalities, most notable at the feet and ankles. No gross hemisensory deficit. Deep tendon reflexes are diffusely diminished, absent at the Achilles tendons. The right plantar responses equivocal, left plantar response downgoing. Patient displays an element of dysmetria [id number]-pk-flmt on the right, none on the left, none with bojo-qw-inrp bilaterally. Ophthalmoscopic examination reveals normal-appearing optic disks and posterior segments. No papilledema or hemorrhages. Carotid pulses normal bilaterally, no bruits to auscultation. Gait and station not tested due to safety concerns. Evaluation of muscle strength reveals weakness of the right upper extremity, especially distally with an apparent wrist drop as well as weakness of intrinsic hand muscles and orthotic assistant strength. Biceps and triceps strength relatively preserved for the right upper limb. Strength for the left arm as well as both legs within normal limits. Tone normal throughout with the exception of the distal right upper limb with a flaccid appearing wrist drop. No atrophy. No abnormal movements observed. Results & Data Vital Signs (Past 12 Hours) Vital Signs Temp Pulse Resp BP Pulse Ox 07/17/19 06:38 84 18 123/70 93 07/17/19 05:38 69 16 119/76 93 07/17/19 04:38 36.7 C 73 18 112/74 95 07/17/19 03:38 71 18 114/67 90 07/17/19 02:38 83 18 120/72 94 07/17/19 01:38 78 16 124/72 91 07/17/19 00:38 70 18 112/63 89 L 07/16/19 23:38 36.6 C 71 16 98/61 L 90 07/16/19 22:38 81 18 124/75 92 07/16/19 21:38 85 18 120/96 94 Laboratory Results WBC 8.25, hemoglobin 17.8, hematocrit 48.9, platelet count 260, sodium 135, potassium 3.9, BUN 19, creatinine 1.06, glucose 299, hemoglobin A1c 10.5, calcium 9.3, magnesium 1.[address] of the head completed at the time of presentation was negative for hemorrhage or acute process. There is an element of frontal atrophy. No hydrocephalus. I reviewed the images as well as the radiologist interpretation of this test. CT angiography of the head and neck reveals moderate mixed plaque of the carotid bulbs with a plaque versus free-floating thrombus within the proximal cervical segment of the left internal carotid artery resulting in 65% luminal narrowing. I reviewed the images as well as the radiologist interpretation of this test. MRI of the brain reveals several foci of acute ischemic infarct within the left cerebral hemisphere, specifically within the left frontal and parietal cortices, possibly consistent with watershed distribution, as well as an acute ischemic infarct in the high left parietal cortex. I reviewed the images as well as the radiologist interpretation of this test. An electrocardiogram reveals sinus tachycardia, 111 bpm PG Care Time/CCT Total # of Minutes Spent Total Time Spent with Patient: Total time spent is greater than 50% in coordination of care (as documented) at patient's floor/unit and/or counseling patient: Coding Level of Care Code 56296 Inpt Consult Level 5 Diagnoses Stroke I63.9 CVA mechanism: unspecified (1) Stroke CVA mechanism: unspecified Qualified Code(s): I63.9 - Cerebral infarction, unspecified
[2019-07-17] MEDS: INSULIN ASPART 100 UNITS/ML 3 ML PEN SC SCH ×4 (10:08→21:19)
[2019-07-17] MEDS: NICOTINE 21 MG/24 HR TDSY TD SCH (10:49)
[2019-07-17] MEDS: UMECLIDINIUM BROMIDE 62.5MCG/BLISTER 7 PUFFS/INHALER INH SCH (10:50)
--- NOTE | 2019-07-17 11:44 | CT Scan Report ---
CT head/brain wo con CLINICAL HISTORY: 64 years-old Male presenting with 24 hr s/p tpa. TECHNIQUE: Multidetector CT imaging of the head was performed without the use of intravenous contrast . IV contrast: None. One or more dose lowering techniques were used consistent with the principles of ALARA (as low as reasonably achievable), including automatic exposure control, mA or kV adjustment t o individual patient size, and/or use of iterative reconstruction. COMPARISON: 07/16/2019. CT DOSE (mGy.cm): The estimated cumulative dose is 638.56 mGycm. FINDINGS: Injection Molding Operator topogram: Unremarkable. Ventricles and sulci normal in size. No hemorrhage. Brain parenchyma normal in appearance with preser lola santillan-white differentiation. No acute territorial infarct. No mass effect or midline shift. No ext ra-axial fluid collection. Paranasal sinuses and mastoid air cells clear. Calvarium intact. IMPRESSION: 1. No acute intracranial abnormality. ACT 112: Negative or not required by law. Electronically signed by: Christian Goncalves M.D. 07/17/2019 11:42 AM
[2019-07-17 12:00] LABS: Basophils # (auto) 0.07 K/uL (0-0.2); Basophils % (auto) 0.6 %; Eosinophils # (auto) 0.21 K/uL (0-0.5); Eosinophils % (auto) 1.9 %; Hemoglobin 17.6 g/dL (14.0-18.0); Immature Granulocytes # (auto) 0.01 K/uL (0.00-0.02); Immature Granulocytes % (auto) 0.1 %; Lymphocytes # (auto) 2.54 K/uL (1.2-3.4); Lymphocytes % (auto) 22.5 %; Mean Corpuscular Hemoglobin 30.3 pg (25-34); Mean Corpuscular Hgb Conc 34.5 g/dL (32-36); Mean Corpuscular Volume 87.8 fL (80-100); Mean Platelet Volume 10.7 fL (7.4-10.4); Monocytes # (auto) 0.64 K/uL (0.11-0.59); Monocytes % (auto) 5.7 %; Neutrophils % (auto) 69.2 %; Platelet Count 238 K/uL (130-400); RDW Coefficient of Variation 13.8 % (11.5-14.5); RDW Standard Deviation 44.1 fL (36.4-46.3); Red Blood Count 5.81 M/uL (4.7-6.1); White Blood Count 11.27 K/uL (4.8-10.8)
[2019-07-17] MEDS ORDERED: [UNRECOGNIZED DRUG - REMARK] ONE (12:00)
[2019-07-17 12:28] LABS: Albumin Level 3.7 gm/dl (3.4-5.0); BUN Creatinine Ratio 14.7 (10-20); Calcium 9.3 mg/dl (8.5-10.1); Creatinine Clr Calc Pharmacy 116.9 ml/min; Est GFR (African American) 109.1; Est GFR (Non-African American) 94.1; Magnesium 2.1 mg/dl (1.8-2.4); Potassium 3.9 mmol/L (3.5-5.1)
[2019-07-17] MEDS ORDERED: INSULIN ASPART 100 UNITS/ML 3 ML PEN SC STA (12:33)
[2019-07-17 12:39] LABS: Bilirubin,Total 0.5 mg/dl (0.2-1); Globulin 3.8 gm/dl (2.5-4.0); Phosphorus 2.7 mg/dl (2.5-4.9); Total Protein 7.5 gm/dl (6.4-8.2)
--- NOTE | 2019-07-17 12:53 | XCELERA ---
[id number] \\[id number]\[id number]
--- NOTE | 2019-07-17 13:18 | Anesthesiology Consultation ---
Date of Service July 17, 2019 Assessment & Plan (1) Encounter for pre-operative examination: Chart Review Chart Review: Acceptable Risk for Surgery (patient is high risk but surgery is urgent) and Patient NOT seen in Pre Admission Testing Consults Requested none neurology following History Surgery Operation Date: 07/18/19 13:00 Proposed Procedures p Left Carotid Endarterectomy - Ryder Villalba MD Height/Weight Height: 5 ft 10 in Weight: 114.5 kg Allergies Allergy/AdvReac Type Severity Reaction Status Date / Time Penicillins Allergy Unknown Unverified 07/16/19 12:09 atorvastatin [From Lipitor] AdvReac Unknown Verified 07/17/19 12:45 Medications Home Medications Medication Instructions Recorded Confirmed Last Taken aspirin 81 mg PO DAILY 07/16/19 07/16/19 Unknown glipizide 10 mg PO DAILY 07/16/19 07/16/19 Unknown metformin 1,000 mg PO BID 07/16/19 07/16/19 Unknown Active Medications Generic Name Dose Route Start Last Admin Trade Name Freq PRN Reason Stop Dose Admin Acetaminophen 650 mg 07/16/19 16:41 07/16/19 20:51 Tylenol PO 08/15/19 16:40 650 mg Q6 PRN Administration Pain Gadobutrol 11 ml 07/16/19 20:20 07/16/19 20:20 Gadavist 65ml IV 07/20/19 20:19 11 ml ONCE PRN Administration Interaction Checking Ioversol 120 ml 07/16/19 12:18 07/16/19 12:18 Optiray 320 125ml IV 07/20/19 12:17 120 ml ONCE PRN Administration Interaction Checking Miscellaneous 1 ea 07/17/19 08:59 07/17/19 08:20 Remove Nicoderm Patch N/A 08/16/19 08:58 1 ea [id number] JAMAL Administration Nicotine 21 mg 07/16/19 13:51 07/17/19 10:49 Nicoderm Cq TD 08/15/19 13:50 21 mg QAM JAMAL Administration Umeclidinium [place] 1 puffs 07/17/19 10:30 07/17/19 10:50 Incruse Ellipta INH 08/16/19 10:29 1 puffs QAM JAMAL Administration Past Medical History Medical History (Updated 07/17/19 @ 13:17 by Jerry Washington MD) Cerebrovascular accident (CVA) 07/16/19 L cerebral infarct with R sided weakness, patient given TPA Coronary artery disease Current smoker Internal carotid artery stenosis Myocardial infarction Type 2 diabetes mellitus Past Family History Family History Father Coronary heart disease Other No significant family history Past Surgical History Surgical History H/O umbilical hernia repair History of cardiac cath History of heart artery stent Social History Smoking Status: Current every day smoker tobacco type: cigarettes Smoking cigarettes per day: 30 Hx Alcohol Use: No Hx Substance Use: No Physical Exam Vital Signs Last Vital Signs Temp 36.8 C 07/17/19 10:38 Pulse 77 07/17/19 10:38 Resp 18 07/17/19 10:38 BP 117/77 07/17/19 10:38 Pulse Ox 92 07/17/19 10:38 Testing Laboratory Results 07/17/19 11:49 07/17/19 11:49 PT 10.2 Seconds (9.0-12.0) 07/16/19 10:40 INR 1.0 (0.9-1.1) 07/16/19 10:40 APTT 27.1 Seconds (21.0-31.0) 07/16/19 10:40 Hemoglobin A1c 10.5 % (4.5-5.6) H 07/16/19 10:40 Blood Type A Positive 07/16/19 11:17 Antibody Screen NEGATIVE 07/16/19 11:17 07/17/19 07/17/19 07/17/19 11:44 09:45 07:18 POC Glucose 211 H 227 H 171 H 07/17/19 07/17/19 07/17/19 04:59 03:23 02:08 POC Glucose 142 H 130 H 158 H 07/17/19 01:16 POC Glucose 138 H Electrocardiogram Date: 07/16/19 Findings: + poor R wave progression (anterior), + ST @ (111) and + NM (inferior ) Chest X-Ray Date: 07/16/19 SINGLE VIEW CHEST CLINICAL HISTORY: Stroke. Fall. FINDINGS: An AP, portable, upright chest radiograph is obtained. No prior studi es are available for comparison at the time of dictation. The examination is degraded by portable technique and patient rotation. The heart is top normal for projection. There is fullness of the pulmonary vasculature. Atelectasis is seen at the lung bases. No airspace consolidation or large pleural effusion is identified. No pneumothorax is seen. The skeletal structures are osteopenic. The bony thorax is grossly intact. IMPRESSION: 1. There is prominence of the pulmonary vasculature. Correlate clinically for evidence of mild congestive failure. 2. No airspace consolidation or large pleural effusion is identified. ACT 112: Negative or not required by law. Electronically signed by: Allen Joya M.D. 07/16/2019 8:54 PM Dictated: 07/16/192052 Transcribed: 07/16/192052 Echocardiogram Date: 07/16/19 EF: 50-55 LV Function: normal Valvular Disease: + no significant valvular disease Other Testing CT head/brain wo con CLINICAL HISTORY: 64 years-old Male presenting with 24 hr s/p tpa. TECHNIQUE: Multidetector CT imaging of the head was performed without the use of intravenous contrast. IV contrast: None. One or more dose lowering techniques were used consistent with the principles of ALARA (as low as reasonably achievable), including automatic exposure control, mA or kV adjustment to individual patient size, and/or use of iterative reconstruction. COMPARISON: 07/16/2019. CT DOSE (mGy.cm): The estimated cumulative dose is 638.56 mGycm. FINDINGS: Quality Compliance Manager topogram: Unremarkable. Ventricles and sulci normal in size. No hemorrhage. Brain parenchyma normal in appearance with preserved santillan-white differentiation. No acute territorial infarct. No mass effect or midline shift. No extra-axial fluid collection. Paranasal sinuses and mastoid air cells clear. Calvarium intact. IMPRESSION: 1. No acute intracranial abnormality. ACT 112: Negative or not required by law. Electronically signed by: Christian Goncalves M.D. 07/17/2019 11:42 AM MRI OF THE BRAIN COMBO CLINICAL HISTORY: Strokelike symptoms. Right hand numbness. COMPARISON STUDY: CT of the brain dated 07/16/2019. TECHNIQUE: MRI of the brain was performed utilizing various T1 and T2-weighted sequences in the axial, sagittal, and coronal planes. Contrast-enhanced sequences were acquired following the administration of 8 cc of Gadavist. FINDINGS: Brain parenchyma: There is age-related involutional change noting mild subcortical and periventricular microangiopathic disease. There are numerous small foci of restricted diffusion identified in the left frontal and parietal cortex consistent with acute to subacute ischemia. There is no hemorrhage or mass effect. No enhancing mass lesion is identified on the postcontrast images. No extra-axial fluid collection is seen. The cerebellar tonsils are normal in configuration. Ventricles, sulci, and cisterns: Prominent secondary to involutional change. Pituitary and sella: Unremarkable. Intracranial vasculature: Normal flow voids are maintained at the skull base. Orbits: The bony orbits are grossly intact. Orbital contents are normal in appearance. Sinuses and mastoids: Clear. Calvarium: Unremarkable. Cervical cord: Partially visualized cervical spinal cord is normal in morphology and signal intensity. IMPRESSION: 1. There are numerous small foci of restricted diffusion identified in the left frontal and parietal cortex consistent with acute to subacute ischemia. 2. There is no hemorrhage or mass effect. ACT 112: Negative or not required by law. Electronically signed by: Allen Joya M.D. 07/16/2019 8:38 PM Dictated: 07/16/192033 Transcribed: 07/16/192033 Dictated: 07/17/191138 Transcribed: 07/17/191138
[2019-07-17] MEDS ORDERED: EZETIMIBE 10 MG TABLET PO ONE (14:00)
[2019-07-17] MEDS ORDERED: CLOPIDOGREL BISULFATE 75 MG TAB PO SCH (14:00)
[2019-07-17] MEDS ORDERED: CLOPIDOGREL BISULFATE 300 MG TAB PO ONE (14:00)
[2019-07-17] MEDS ORDERED: ASPIRIN 81 MG ECTAB PO ONE (14:00)
[2019-07-17] MEDS: ENOXAPARIN INJ 40 MG/0.4 ML SYR SQ SCH (14:41)
--- NOTE | 2019-07-17 15:50 | Consultation ---
Date of Consultation July 17, 2019 Assessment & Plan (1) Stroke due to stenosis of left carotid artery: Recommend left carotid endarterectomy this admission. I have discussed the risks options and benefits of the procedure with the patient. The patient understands the risks options and benefits and agrees to the procedure. Will be scheduled for tomorrow around 1300 Thank you very much for letting us participate in the care of this patient. History of Present Illness Reason for Consultation: Left internal carotid stenosis Attending Physician: nAalisa Rice MD History of Present Illness Patient is a 64 yo male who suffered a left hemisphere stroke yesterday. It involved his right arm. The residual at this time is right hand only. CTA showed severe narrowing of the left internal carotid artery with thrombus. He does have Type II diabetes, heard disease, and does smoke. Allergies Allergy/AdvReac Type Severity Reaction Status Date / Time Penicillins Allergy Unknown Unverified 07/16/19 12:09 atorvastatin [From Lipitor] AdvReac Unknown Verified 07/17/19 12:45 Home Medications Home Medications Medication Instructions Recorded Confirmed Type aspirin 81 mg PO DAILY 07/16/19 07/16/19 History glipizide 10 mg PO DAILY 07/16/19 07/16/19 History metformin 1,000 mg PO BID 07/16/19 07/16/19 History Patient History Medical History Cerebrovascular accident (CVA) 07/16/19 L cerebral infarct with R sided weakness, patient given TPA Coronary artery disease Current smoker Internal carotid artery stenosis Myocardial infarction Type 2 diabetes mellitus Surgical History H/O umbilical hernia repair History of cardiac cath History of heart artery stent Family History Father Coronary heart disease Other No significant family history Social History Preferred Language: Macedonian Communication Ability: Effective Beliefs That Will Affect Care: Spiritual marital status: Single Current Living Situation: Alone current occupational status: employed Other Information That Helps Us Care for You: No Feels Safe at Home: Yes Safety Concerns: Feels Safe At This Time Smoking Status: Current every day smoker Tobacco Type: cigarettes ; Cigarettes Per Day: 30 ; Tobacco Cessation Education Requested by Patient: No Hx Alcohol Use: No Hx Substance Use: No Review of Systems Review of Systems: All systems reviewed & are unremarkable except as noted in HPI & below Physical Exam Constitutional: WD/WN, vitals as above Neck: trachea midline Respiratory: normal respiratory effort, lungs clear to auscultation normal respiratory effort; no respiratory distress Cardiovascular: Rate/Rhythm: regular rate and regular rhythm Gastrointestinal (Abdomen): normal bowel sounds, soft, nontender, no hepatosplenomegaly Musculoskeletal: Extremities: + abnormal strength (right hand flaccid) Skin: no rashes, warm and dry Neurologic: normal touch/pain/proprioception and CN's II-XI intact bilaterally Speech / Cognition: normal speech Motor/Sensory: + abnormal movement Psychiatric: A+Ox3, euthymic affect Results & Data Vital Signs (Past 12 Hours) Vital Signs Temp Pulse Pulse Resp BP BP Pulse Ox 07/17/19 14:39 93 H 141/86 H 95 07/17/19 13:39 91 H 123/68 90 07/17/19 13:28 125/98 93 07/17/19 13:14 92 H 134/72 92 07/17/19 12:39 90 149/92 H 92 07/17/19 10:38 36.8 C 77 18 117/77 92 07/17/19 09:38 36.7 C 76 16 113/70 93 07/17/19 08:38 36.7 C 88 16 116/78 90 07/17/19 07:38 36.8 C 81 16 118/72 92 07/17/19 06:38 84 18 123/70 93 07/17/19 05:38 69 16 119/76 93 07/17/19 04:38 36.7 C 73 18 112/74 95
[2019-07-17] MEDS ORDERED: INSULIN GLARGINE SOLOSTAR 100 UNITS/ML 3 ML PEN SC SCH (21:00)
[2019-07-18] MEDS: INSULIN ASPART 100 UNITS/ML 3 ML PEN SC SCH ×7 (00:07→23:38)
[2019-07-18 04:30] LABS: Basophils # (auto) 0.05 K/uL (0-0.2); Basophils % (auto) 0.8 %; Eosinophils # (auto) 0.19 K/uL (0-0.5); Eosinophils % (auto) 2.9 %; Hemoglobin 17.2 g/dL (14.0-18.0); Immature Granulocytes # (auto) 0.01 K/uL (0.00-0.02); Immature Granulocytes % (auto) 0.2 %; Lymphocytes # (auto) 1.65 K/uL (1.2-3.4); Lymphocytes % (auto) 24.8 %; Mean Corpuscular Hemoglobin 30.5 pg (25-34); Mean Corpuscular Hgb Conc 34.4 g/dL (32-36); Mean Corpuscular Volume 88.7 fL (80-100); Mean Platelet Volume 10.4 fL (7.4-10.4); Monocytes # (auto) 0.72 K/uL (0.11-0.59); Monocytes % (auto) 10.8 %; Neutrophils # (auto) 4.03 K/uL (1.4-6.5); Neutrophils % (auto) 60.5 %; Platelet Count 223 K/uL (130-400); RDW Coefficient of Variation 13.8 % (11.5-14.5); RDW Standard Deviation 44.9 fL (36.4-46.3); Red Blood Count 5.64 M/uL (4.7-6.1); White Blood Count 6.65 K/uL (4.8-10.8)
[2019-07-18 04:51] LABS: Calcium 8.9 mg/dl (8.5-10.1); Creatinine Clr Calc Pharmacy 122.8 ml/min; Est GFR (African American) 111.3; Est GFR (Non-African American) 96.1; Potassium 3.5 mmol/L (3.5-5.1)
[2019-07-18 04:55] LABS: Phosphorus 3.3 mg/dl (2.5-4.9)
[2019-07-18] MEDS: POTASSIUM CHLORIDE / WTR 10 MEQ/100 ML PLCT IV SCH ×2 (06:30→07:55)
[2019-07-18] MEDS ORDERED: INSULIN GLARGINE SOLOSTAR 100 UNITS/ML 3 ML PEN SC SCH (09:00)
[2019-07-18] MEDS ORDERED: INSULIN GLARGINE SOLOSTAR 100 UNITS/ML 3 ML PEN SC ONE ×2 (09:00→12:00)
[2019-07-18] MEDS: UMECLIDINIUM BROMIDE 62.5MCG/BLISTER 7 PUFFS/INHALER INH SCH (09:19)
[2019-07-18] MEDS: NICOTINE 21 MG/24 HR TDSY TD SCH (09:20)
[2019-07-18] MEDS: CLOPIDOGREL BISULFATE 75 MG TAB PO SCH (09:26)
[2019-07-18] MEDS: ASPIRIN 81 MG ECTAB PO SCH (09:26)
[2019-07-18] MEDS: EZETIMIBE 10 MG TABLET PO SCH (09:27)
[2019-07-18] MEDS ORDERED: fentaNYL citrate 100 MCG/2 ML VIAL ONE ×2 (11:22→16:41)
[2019-07-18] MEDS ORDERED: LIDOCAINE HCL 1% 20 ML VIAL ONE ×2 (11:42→15:23)
[2019-07-18] MEDS ORDERED: GELATIN SPONGE SZ 100 ONE ×2 (11:42→15:24)
[2019-07-18] MEDS ORDERED: HEPARIN (PORCINE) 1000 UNIT/ML 10 ML (CATH LAB USE ONLY) ONE ×2 (11:42→15:23)
[2019-07-18] MEDS ORDERED: THROMBIN FOR SOLN 20000 UNIT KIT ONE ×2 (11:43→15:24)
[2019-07-18] MEDS ORDERED: EPINEPHrine INJ 1 MG/ML AMP ONE ×2 (11:47→15:23)
[2019-07-18] MEDS ORDERED: BUPIVACAINE 0.5 % 5 MG/1 ML MPF 30ML VIAL ONE ×2 (11:47→15:23)
[2019-07-18] MEDS ORDERED: fentaNYL citrate 100 MCG/2 ML VIAL IV PRN (12:12)
[2019-07-18] MEDS ORDERED: ATROPINE SULFATE 0.1 MG/ML 10ML SYR IV PRN (12:12)
[2019-07-18] MEDS ORDERED: METOCLOPRAMIDE HCL INJ 5 MG/ML 2 ML VIAL IV PRN (12:12)
[2019-07-18] MEDS ORDERED: HYDROmorphone INJ 2 MG/ML SYR/VIAL IV PRN (12:12)
[2019-07-18] MEDS ORDERED: KETOROLAC 30 MG/ML VIAL IV PRN (12:12)
[2019-07-18] MEDS ORDERED: ePHEDrine sulfate 50 MG/ML AMP IV PRN (12:12)
[2019-07-18] MEDS ORDERED: ONDANSETRON INJ 2 MG/ML 2 ML VIAL IV PRN (12:12)
[2019-07-18] MEDS ORDERED: PROMETHAZINE HCL 12.5 MG in SODIUM CHLORIDE 0.9% 50 ML IV PRN (12:12)
--- NOTE | 2019-07-18 12:26 | History & Physical Bridge Note ---
Date of Service July 18, 2019 History & Physical Bridge Note Patient for a left carotid endarterectomy today. I have discussed the risks options and benefits of the procedure with the patient. The patient understands the risks options and benefits and agrees to the procedure. I have examined the patient, reviewed the History & Physical and in the interval since the performance of the History & Physical I have noted the following changes of clinical significance: no changes noted
[2019-07-18] MEDS ORDERED: BACITRACIN INJ 50,000 UNIT VIAL ONE ×2 (12:33→15:24)
[2019-07-18] MEDS ORDERED: PROPOFOL IV EMULSION 10 MG/ML 20 ML VIAL IV ONE (12:37)
[2019-07-18] MEDS ORDERED: LIDOCAINE HCL 2% 2 ML VIAL/AMP(20MG/ML) INFIL ONE (12:37)
[2019-07-18] MEDS ORDERED: ROCURONIUM BROMIDE 10 MG/ML 5 ML VIAL ONE ×4 (12:37→17:50)
[2019-07-18] MEDS ORDERED: MIDAZOLAM HCL 1 MG/ML 2ML VIAL ONE (12:38)
[2019-07-18] MEDS: CLINDAMYCIN 600 MG/54 ML BAG IV SCH ×2 (12:59→16:25)
--- NOTE | 2019-07-18 13:03 | Critical Care Consultation ---
Date of Consultation July 18, 2019 Assessment & Plan (1) CVA (cerebral vascular accident): Continue post TPA protocol. Day [address] head will be obtained this afternoon. Will start Plavix 24 hours after TPA. MRI is consistent with stroke. Patient will need vascular intervention for internal carotid artery stenosis and possible endarterectomy. I did discuss smoking cessation with him as well. Expect that he may be able to move out of the ICU later today. He will need continued physical therapy and Occupational Therapy. (2) Coronary artery disease: (3) Current smoker: (4) Type 2 diabetes mellitus: (5) Internal carotid artery stenosis: History of Present Illness Attending Physician: Lesly Lerma DO Allergies Allergy/AdvReac Type Severity Reaction Status Date / Time Penicillins Allergy Unknown Unverified 07/16/19 12:09 atorvastatin [From Lipitor] AdvReac Unknown Verified 07/17/19 12:45 Home Medications Home Medications Medication Instructions Recorded Confirmed Type aspirin 81 mg PO DAILY 07/16/19 07/16/19 History glipizide 10 mg PO DAILY 07/16/19 07/16/19 History metformin 1,000 mg PO BID 07/16/19 07/16/19 History Patient History Medical History Cerebrovascular accident (CVA) 07/16/19 L cerebral infarct with R sided weakness, patient given TPA Coronary artery disease Current smoker Internal carotid artery stenosis Myocardial infarction Type 2 diabetes mellitus Surgical History H/O umbilical hernia repair History of cardiac cath History of heart artery stent Family History Father Coronary heart disease Other No significant family history Social History Preferred Language: Upper Sorbian Communication Ability: Effective Beliefs That Will Affect Care: Spiritual marital status: Single Current Living Situation: Alone current occupational status: employed Other Information That Helps Us Care for You: No Feels Safe at Home: Yes Safety Concerns: Feels Safe At This Time Smoking Status: Current every day smoker Tobacco Type: cigarettes ; Cigarettes Per Day: 30 ; Tobacco Cessation Education Requested by Patient: No Hx Alcohol Use: No Hx Substance Use: No Physical Exam Constitutional: well developed Eyes: PERRL, conjunctivae normal, anicteric sclerae ENMT: external ear and nose normal, oropharynx normal Neck: normal visual inspection Respiratory: normal respiratory effort, lungs clear to auscultation Cardiovascular: RRR, no murmur, no edema Gastrointestinal (Abdomen): normal bowel sounds, soft, nontender, no hepatosplenomegaly Musculoskeletal: no cyanosis or clubbing, extremities motor strength 5/5 Skin: no rashes, warm and dry Psychiatric: A+Ox3, euthymic affect Lymphatic: no lymphadenopathy Results & Data ([facility]) Vital Signs (Past 12 Hours) Vital Signs Temp Pulse Pulse Resp BP BP Pulse Ox 07/18/19 12:17 75 13 137/85 95 07/18/19 12:08 98.4 F 70 18 126/84 93 07/18/19 12:02 79 17 128/84 93 07/18/19 12:00 98.1 F 81 17 94 07/18/19 11:17 98 H 17 152/125 H 93 07/18/19 10:34 83 25 H 139/86 94 07/18/19 09:17 69 16 128/77 93 07/18/19 08:17 74 20 123/65 93 07/18/19 08:00 98.1 F 70 64 16 143/69 H 92 07/18/19 07:17 68 18 143/69 H 89 L 07/18/19 06:00 72 20 123/68 92 07/18/19 04:00 98.1 F 69 15 118/70 92 07/18/19 02:00 63 15 107/72 92 Coding Diagnoses CVA (cerebral vascular accident) I63.9 CVA mechanism: unspecified Coronary artery disease I25.10 Coronary Disease-Associated Artery/Lesion type: [place] artery [place] vs. transplanted heart: [place] heart Associated angina: without angina Current smoker F17.200 Type 2 diabetes mellitus E11.59 Diabetes mellitus tank terminal gauger insulin use: without tank terminal gauger use Diabetes mellitus complication status: with circulatory complication Diabetes mellitus complication detail: with other circulatory complications Internal carotid artery stenosis I65.22 Laterality: left (1) CVA (cerebral vascular accident) CVA mechanism: unspecified Qualified Code(s): I63.9 - Cerebral infarction, unspecified (2) Coronary artery disease Coronary Disease-Associated Artery/Lesion type: [place] artery [place] vs. transplanted heart: [place] heart Associated angina: without angina Qualified Code(s): I25.10 - Atherosclerotic heart disease of [place] coronary artery without angina pectoris (3) Type 2 diabetes mellitus Diabetes mellitus intermediate insulin use: without intermediate use Diabetes mellitus complication status: with circulatory complication Diabetes mellitus complication detail: with other circulatory complications Qualified Code(s): E11.59 - Type 2 diabetes mellitus with other circulatory complications (4) Internal carotid artery stenosis Laterality: left Qualified Code(s): I65.22 - Occlusion and stenosis of left carotid artery
--- NOTE | 2019-07-18 13:13 | Critical Care Progress Note ---
Date of Service July 18, 2019 Assessment & Plan (1) CVA (cerebral vascular accident): Patient is status post TPA. He received aspirin and Plavix yesterday. He is going for left carotid endarterectomy today given the stenosis and free- floating plaque noted on the original CTA. Blood pressure within goal parameters. He is receiving Zetia due to adverse effects related to statins. He is on insulin with good glucose control. He is also receiving Lovenox for DVT prophylaxis. Continue aspirin and Plavix per vascular surgery and neurology recommendations. Continue Incruse Ellipta for history of likely COPD. Will need outpatient pulmonary function testing. Would also recommend outpatient sleep study to evaluate for sleep apnea. (2) Coronary artery disease: (3) Current smoker: (4) Type 2 diabetes mellitus: (5) Internal carotid artery stenosis: Subjective Patient n.p.o. overnight. No significant issues overnight. Blood pressure control is adequate. No nausea or vomiting. No fevers or chills. No chest pain. He is set for surgery for a left CEA. Physical Exam Constitutional: well developed Eyes: PERRL, conjunctivae normal, anicteric sclerae ENMT: external ear and nose normal, oropharynx normal Neck: normal visual inspection Respiratory: normal respiratory effort, lungs clear to auscultation Cardiovascular: RRR, no murmur, no edema Gastrointestinal (Abdomen): normal bowel sounds, soft, nontender, no hepatosplenomegaly Musculoskeletal: no cyanosis or clubbing, extremities motor strength 5/5 Skin: no rashes, warm and dry Neurologic: Speech mildly garbled.. He continues to have 1 out of 5 weakness in the right hand and arm. Psychiatric: A+Ox3, euthymic affect Lymphatic: no lymphadenopathy Results & Data ([facility]) Vital Signs (Past 12 Hours) Vital Signs Temp Pulse Pulse Resp BP BP Pulse Ox 07/18/19 12:17 75 13 137/85 95 07/18/19 12:08 98.4 F 70 18 126/84 93 07/18/19 12:02 79 17 128/84 93 07/18/19 12:00 98.1 F 81 17 94 07/18/19 11:17 98 H 17 152/125 H 93 07/18/19 10:34 83 25 H 139/86 94 07/18/19 09:17 69 16 128/77 93 07/18/19 08:17 74 20 123/65 93 07/18/19 08:00 98.1 F 70 64 16 143/69 H 92 07/18/19 07:17 68 18 143/69 H 89 L 07/18/19 06:00 72 20 123/68 92 07/18/19 04:00 98.1 F 69 15 118/70 92 07/18/19 02:00 63 15 107/72 92 Coding Level of Care Code 10283 Subseq Hosp Care Lvl 2 Diagnoses CVA (cerebral vascular accident) I63.9 CVA mechanism: unspecified Coronary artery disease I25.10 Coronary Disease-Associated Artery/Lesion type: [place] artery [place] vs. transplanted heart: [place] heart Associated angina: without angina Current smoker F17.200 Type 2 diabetes mellitus E11.59 Diabetes mellitus longterm insulin use: without termite treater use Diabetes mellitus complication status: with circulatory complication Diabetes mellitus complication detail: with other circulatory complications Internal carotid artery stenosis I65.22 Laterality: left (1) CVA (cerebral vascular accident) CVA mechanism: unspecified Qualified Code(s): I63.9 - Cerebral infarction, unspecified (2) Coronary artery disease Coronary Disease-Associated Artery/Lesion type: [place] artery [place] vs. transplanted heart: [place] heart Associated angina: without angina Qualified Code(s): I25.10 - Atherosclerotic heart disease of [place] coronary artery without angina pectoris (3) Type 2 diabetes mellitus Diabetes mellitus longterm insulin use: without longterm use Diabetes mellitus complication status: with circulatory complication Diabetes mellitus complication detail: with other circulatory complications Qualified Code(s): E11.59 - Type 2 diabetes mellitus with other circulatory complications (4) Internal carotid artery stenosis Laterality: left Qualified Code(s): I65.22 - Occlusion and stenosis of left carotid artery
--- NOTE | 2019-07-18 13:51 | Pharmacy Report ---
Pharmacy Glycemic Short Note 2 - Date of Service July 18, 2019 - Glycemic Short BSG Results (Last 24 hours): 07/17/19 07/17/19 07/18/19 15:41 21:06 00:02 Glucose POC Glucose 240 H 179 H 268 H 07/18/19 07/18/19 07/18/19 03:51 04:11 05:56 Glucose 176 H POC Glucose 167 H 187 H 07/18/19 07/18/19 07:59 11:58 Glucose POC Glucose 233 H 170 H OUTPATIENT ANTIDIABETIC REGIMEN: * Glipizide 10mg PO daily * Metformin 1gm PO BID * A1c = 10.5% ASSESSMENT: 07/18 * Patient transitioned off insulin drip yesterday * Patient has received 109 units of insulin over the last 24 hrs (while tolerating a diet) * Fasting BSG 187 this AM with 30 units basal insulin on board and after receiving 14 units correctional insulin overnight - will continue to titrate up (once no longer NPO) * Surgery scheduled with Dr Villalba today (L CEA) * Based upon insulin needs over last 24 hrs, Novolog doses will also be uptitrated 2/ * A1c resulted, consistent w/ poor glycemic control prior to admission on outpt oral hypoglycemic regimen * Insulin drip continues this AM, running at 2.5units/hr and BSGs in goal range * Pt is ordered a diet, will begin to transition to SQ regimen at this time * Initial basal/bolus regimen doses will be based upon moderate stress level and weight 2/4 * Type 2 diabetic admitted for ischemic stroke, now s/p tPA and admitted to ICU * BSGs in the 300s at this time * Pt is currently NPO * Will initiate IV insulin drip per protocol at this time given significant hyperglycemia and need for tight glycemic control in the setting of stroke. Quick control of hyperglycemia and avoidance of hypoglycemia can best be accomplished with IV insulin infusion PLAN FOR INPATIENT GLYCEMIC CONTROL: * Hold outpatient oral diabetes medications (metformin + glipizide) * Lantus 20 units x 1 this AM * Lantus SQ BID per the following scale initially: * 0 units if BSG less than 120 * 15 units if BSG 120-139 * 20 units if BSG 140-180 * 25 units if above 180 * Novolog SQ ACHS and at 0000 + 0400 initially * Goal range: 110-140mg/dL * Correction factor: 15 mg/dL * Carb ratio: 1 unit per 5 gm CHO consumed with meals PLAN FOR DISCHARGE: * Given poor glycemic control with outpt regimen, A1c greater than 10 and recent stroke, one should consider the use of metformin + basal insulin + (GLP1-Ag or prandial insulin) on discharge. However given patient's concerns with medication affordability, would lean more towards use of metformin + Relion 70/30 insulin on discharge (insulin needs still to be determined, however 0.5units/kg/day divided BID with breakfast + dinner would be a reasonable starting point)
[2019-07-18] MEDS: ENOXAPARIN INJ 40 MG/0.4 ML SYR SQ SCH (14:00)
--- NOTE | 2019-07-18 15:01 | Hospitalist Progress Note ---
Date of Service July 18, 2019 Assessment & Plan (1) CVA (cerebral vascular accident): Continue stroke protocol; Continue ICU; Patient switched from atorvastatin to Zetia 10 mg p.o. daily because he tried 3 various statins and had several days after ingestion severe issues with his lower extremities and ability to walk. Patient reports having a muscle pains after taking statins. Patient tried simvastatin, pravastatin, and Crestor. CT scan of the head repeated and negative MRI noted for L frontal/parietal acute to subacute ischemia Continue aspirin 81mg P.O. for 3 weeks and start loading dose of Plavix 300 mg p.o. x1 and then 75 mg p.o. daily indefinitely unless side effects with bleeding and bruising or hemorrhaging. 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 No regional wall motion abnormality noted. Ejection fraction 50 to 55%. Injection of contrast documented no intra-arterial shunt. (2) Internal carotid artery stenosis: L ICA with 65% stenosis, thought to be origin of CVA L CEA planned for 07/[address] Villalba (3) Type 2 diabetes mellitus: Poorly controlled as per his PCP on glipizide and metformin (placed on hold) A1c 10.5 Pt states medication noncompliance related to no insurance (4) Current smoker: Smoking cessation advice given. Nicotine patch 21mg/24hrs. Education packets ordered (5) Coronary artery disease: Restart ASA after 24 hours, start atorvastatin as above. Consider BB if remains tachycardic despite adequate hydration. (6) Hyperlipidemia: Patient switched from atorvastatin to Zetia 10 mg p.o. daily because he tried 3 various statins and had several days after ingestion severe issues with his lower extremities and ability to walk. Patient reports having a muscle pains after taking statins. Patient tried simvastatin, pravastatin, and Crestor. TG 331 LDL 118 HDL 26 (7) DVT prophylaxis: Chemical prophylaxis deferred until 24 hours s/p tPA. SCDs (8) Discharge planning issues: PT/OT ST-regular diet with aspiration precautions CM to assist with insurance issues Subjective Pt states he is able to use his R hand more, but not at baseline. He states he was able to pull a tissue earlier today. His speech is also improving, but not quite at baseline. He states it is worse when he is tired. He is NPO for OR today, but tolerating PO yesterday. Pt denies fever, SOB, chest pain, abd pain, n/v/c/d, LE pain or swelling. Review of Systems Review of Systems: Pertinent positives and negatives reviewed in HPI--all others negative Physical Exam Constitutional: WD/WN, vitals as above Eyes: normal visual churchill by confrontation and + anicteric sclerae Neck: normal visual inspection and trachea midline Respiratory: normal respiratory effort, lungs clear to auscultation Cardiovascular: Rate/Rhythm: regular rate and regular rhythm Gastrointestinal (Abdomen): Inspection/Auscultation: abdomen not distended Percussion/Palpation: abdomen soft; abdomen nontender Musculoskeletal: Head/Neck/Chest: normocephalic and head atraumatic negative for edema, peripheral pulses intact Skin: no rashes, warm and dry Neurologic: awake; not confused Speech / Cognition: + abnormal speech (slight slurring noted, dentures not in place); no expressive aphasia and normal cognition Motor/Sensory: + abnormal movement (unable to control movement at R wrist, able to move R 2-5 digits grossly) Psychiatric: A+Ox3, euthymic affect Results & Data ([facility]) Vital Signs (Past 12 Hours) Vital Signs Temp Pulse Pulse Resp BP BP Pulse Ox 07/18/19 13:13 75 11 L 107/82 97 07/18/19 12:17 75 13 137/85 95 07/18/19 12:08 36.9 C 70 18 126/84 93 07/18/19 12:02 79 17 128/84 93 07/18/19 12:00 36.7 C 81 17 94 07/18/19 11:17 98 H 17 152/125 H 93 07/18/19 10:34 83 25 H 139/86 94 07/18/19 09:17 69 16 128/77 93 07/18/19 08:17 74 20 123/65 93 07/18/19 08:00 36.7 C 70 64 16 143/69 H 92 07/18/19 07:17 68 18 143/69 H 89 L 07/18/19 06:00 72 20 123/68 92 07/18/19 04:00 36.7 C 69 15 118/70 92 PG Care Time/CCT Total # of Minutes Spent Total Time Spent with Patient: Total time spent is greater than 50% in coordination of care (as documented) at patient's floor/unit and/or counseling patient: Coding Level of Care Code 66508 Subseq Hosp Care Lvl 3 Diagnoses CVA (cerebral vascular accident) I63.9 CVA mechanism: unspecified Internal carotid artery stenosis I65.22 Laterality: left Type 2 diabetes mellitus E11.59 Diabetes mellitus half-way insulin use: without half-way use Diabetes mellitus complication status: with circulatory complication Diabetes mellitus complication detail: with other circulatory complications Current smoker F17.200 Coronary artery disease I25.10 Coronary Disease-Associated Artery/Lesion type: [place] artery [place] vs. 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 transplanted heart: [place] heart Associated angina: without angina Qualified Code(s): I25.10 - Atherosclerotic heart disease of [place] coronary artery without angina pectoris
[2019-07-18] MEDS ORDERED: CLINDAMYCIN PHOS 300 MG/2 ML VIAL ONE (16:27)
[2019-07-18] MEDS ORDERED: HEPARIN SOD (PORCINE) 1000 UNIT/ML 10 ML VIAL ONE ×2 (16:41→17:52)
[2019-07-18] MEDS ORDERED: ONDANSETRON INJ 2 MG/ML 2 ML VIAL ONE ×2 (16:41→19:09)
[2019-07-18] MEDS ORDERED: PHENYLEPHRINE HCL 10 MG/ML VIAL ONE (16:58)
[2019-07-18] MEDS ORDERED: GLYCOPYRROLATE 0.2 MG/ML VIAL ONE (17:53)
[2019-07-18] MEDS ORDERED: NEOSTIGMINE METHYLSULFATE 5 MG/5 ML SYR ONE (17:53)
--- NOTE | 2019-07-18 18:13 | Post Operative Brief Note ---
Immediate Post Op Note v1 Date of Surgery July 18, 2019 Pre & Post Diagnosis Operation Date: 07/18/19 13:00 Pre-Op Diagnosis: Stenosis of left carotid artery Post-Op Diagnosis: Stenosis of left carotid artery I identified the patient and participated in the time-out.: Yes Procedure Operation Date: 07/18/19 13:00 Actual Procedures p Left Carotid Endarterectomy(Left) - Ryder Villalba MD Surgeon Ryder Villalba MD Grinder And Honer Operator Automatic MD Zhou Estimated Blood Loss 50 Findings Consistent with Post-Op Diagnosis Specimens left carotid plaque Anesthesia Type General Complications none Disposition Accompanied Patient To Recovery: No Disposition: Surgical ICU
--- NOTE | 2019-07-18 18:52 | Operative Report ---
Post Operative Report Pre & Post Diagnosis Operation Date: 07/18/19 13:00 Pre-Op Diagnosis: Stenosis of left carotid artery Post-Op Diagnosis: Stenosis of left carotid artery I identified the patient and participated in the time-out.: Yes Procedure Operation Date: 07/18/19 13:00 Actual Procedures p Left Carotid Endarterectomy(Left) - Ryder Villalba MD Surgeon Dr. Villalba Bottle Assembler MD Zhou Estimated Blood Loss 50 Findings Consistent with Post-Op Diagnosis Specimens Plaque Anesthesia Type General Complications none Disposition Accompanied Patient To Recovery: No Disposition: Surgical ICU Description of Procedure The patient was taken to the operating room and placed in supine position. After general anesthesia was accomplished and appropriate antibiotics administered, the left-side of the neck was prepped and draped in a sterile manner. A longitudinal neck incision was then made coursing along the medial border of the sternocleidomastoid muscle. The incision was taken down through the platysmal layer. The facial vein was identified, ligated, and divided. The common carotid artery was then seen. It was dissected free down to the omohyoid muscle. The dissection was carried upward until the external carotid artery and superior thyroid artery was seen. The superior thyroid artery was slung with a 2-0 silk suture. The external carotid was slung with a red rubber vessel loop. Next the dissection was carried up along the internal carotid artery. This was carried upward to beyond the area of narrowing. The hypoglossal nerve was seen and preserved. The patient was heparinized. After adequate heparinization was accomplished, the internal, external, and common carotid arteries were clamped. A longitudinal arteriotomy was started on the common carotid artery and extended upward along the internal carotid artery to a point beyond the area of narrowing. There was a hemorrhagic plaque of the internal carotid artery origin causing narrowing. A Doppler shunt was then placed in the internal, followed by the common carotid artery and held in place with [place] clamps. There was good back bleeding seen from the internal carotid artery. The endarterectomy was then started in the appropriate plane on the common carotid artery. This was carried upward and the external carotid was everted and endarterectomized. The endarterectomy was then carried up along the internal carotid artery till a nice feathering breakoff point was accomplished beyond the end of the plaque. The endarterectomy was then carried down further on the common carotid artery. At end of the arteriotomy, the plaque was then transected. Under loop magnification, all loose debris and flaps were removed. There is no distal flap seen at the end of the endarterectomy site. The arteriotomy then closed using a bovine pericardial patch and a running 6-0 prolene suture. This was done in the usual vascular fashion. Prior to completing the closure, the doppler shunt was removed and the internal and common carotid arteries were reclamped. Backbleeding and forward bleeding was allowed to occur. The flow surface was irrigated with heparinized saline. The final few sutures were then placed and securely tied. Clamps were then removed off the external and common carotid arteries. The clamp was then removed from the internal carotid artery. Good distal flow was seen. Adequate hemostasis was seen of the patch. The wound was inspected and adequate hemostasis was obtained. The wound was irrigated with antibiotic solution. It was then closed with a running 3-0 Vicryl suture for the platysmal layer and a 4-0 subcuticular Vicryl suture for the skin edges. Dermabond was used for dressing. The patient left the operating room in satisfactory condition and tolerated the procedure well. I attest to the content of the Intraoperative Record and any orders documented therein. Any exceptions are noted below.
--- NOTE | 2019-07-18 18:53 | Post Operative Brief Note ---
Immediate Post Op Note v1 Date of Surgery July 18, 2019 Pre & Post Diagnosis Operation Date: 07/18/19 13:00 Pre-Op Diagnosis: Stenosis of left carotid artery Post-Op Diagnosis: Stenosis of left carotid artery I identified the patient and participated in the time-out.: Yes Procedure Operation Date: 07/18/19 13:00 Actual Procedures p Left Carotid Endarterectomy(Left) - Ryder Villalba MD Surgeon Dr. Villalba Technology Auditor MD Zhou Estimated Blood Loss 50 Findings Consistent with Post-Op Diagnosis Specimens left carotid plaque Anesthesia Type General
--- NOTE | 2019-07-18 19:09 | Anesthesiology Progress Note ---
Date of Service July 18, 2019 Anesthesia Post Procedure Vital Signs Vital Signs: Temp Pulse Pulse Resp BP BP Pulse Ox 07/18/19 18:59 97.0 F L 81 20 141/88 H 96 07/18/19 15:17 98.1 F 66 12 123/82 95 07/18/19 14:17 68 3 L 119/85 07/18/19 13:17 118/62 07/18/19 13:13 75 11 L 107/82 97 07/18/19 12:17 75 13 137/85 95 07/18/19 12:08 98.4 F 70 18 126/84 93 07/18/19 12:02 79 17 128/84 93 07/18/19 12:00 98.1 F 81 17 94 07/18/19 11:17 98 H 17 152/125 H 93 07/18/19 10:34 83 25 H 139/86 94 07/18/19 09:17 69 16 128/77 93 07/18/19 08:17 74 20 123/65 93 07/18/19 08:00 98.1 F 70 64 16 143/69 H 92 07/18/19 07:17 68 18 143/69 H 89 L 07/18/19 06:00 72 20 123/68 92 07/18/19 04:00 98.1 F 69 15 118/70 92 07/18/19 02:00 63 15 107/72 92 07/18/19 00:00 97.9 F 63 16 112/68 94 07/17/19 22:00 78 19 119/60 93 07/17/19 20:00 97.7 F 73 20 135/75 93 Pain Intensity Neck: Pain Intensity: 5 Nose: Pain Intensity: 0 Transfer of Care Handoff Completed per policy Notes Mental Status: alert / awake / arousable and participated in evaluation Patient Amnestic to Procedure: Yes Nausea / Vomiting: adequately controlled Pain: adequately controlled Airway Patency, RR, SpO2: stable & adequate BP & HR: stable & adequate Hydration State: stable & adequate Anesthetic Complications: no major complications apparent and Pt Satisfied with anesthetic care
[2019-07-18] MEDS: LACTATED RINGER'S 1,000 ML IV SCH (19:50)
[2019-07-18] MEDS: MoRPHine SULFATE 4 MG/ML 1 ML CARP\\VIAL IV PRN ×2 (20:07→23:36)
[2019-07-19] MEDS: LACTATED RINGER'S 1,000 ML IV SCH (04:00)
[2019-07-19] MEDS: INSULIN ASPART 100 UNITS/ML 3 ML PEN SC SCH ×5 (04:05→21:18)
[2019-07-19 05:10] LABS: Phosphorus 3.8 mg/dl (2.5-4.9)
[2019-07-19 06:15] LABS: BUN Creatinine Ratio 19.4 (10-20); Calcium 8.5 mg/dl (8.5-10.1); Creatinine Clr Calc Pharmacy 137.8 ml/min; Est GFR (African American) 117.8; Est GFR (Non-African American) 101.6; Magnesium 1.8 mg/dl (1.8-2.4)
[2019-07-19 06:16] LABS: Potassium 4.1 mmol/L (3.5-5.1)
[2019-07-19] MEDS: INSULIN GLARGINE SOLOSTAR 100 UNITS/ML 3 ML PEN SC SCH ×2 (08:12→21:19)
[2019-07-19] MEDS: NICOTINE 21 MG/24 HR TDSY TD SCH (08:13)
[2019-07-19] MEDS: ASPIRIN 81 MG ECTAB PO SCH (08:13)
[2019-07-19] MEDS: UMECLIDINIUM BROMIDE 62.5MCG/BLISTER 7 PUFFS/INHALER INH SCH (08:13)
[2019-07-19] MEDS: CLOPIDOGREL BISULFATE 75 MG TAB PO SCH (08:13)
--- NOTE | 2019-07-19 08:34 | Anesthesiology Progress Note ---
Date of Service July 19, 2019 Anesthesia Post Procedure Vital Signs Vital Signs: Temp Pulse Pulse Resp BP BP Pulse Ox 07/19/19 08:00 54 L 07/19/19 07:00 59 L 21 94 07/19/19 06:00 63 18 94 07/19/19 05:00 60 17 107/63 93 07/19/19 04:00 36.8 C 57 L 16 113/68 93 07/19/19 03:00 78 16 110/57 L 89 L 07/19/19 02:00 56 L 18 108/59 L 94 07/19/19 01:00 55 L 16 102/61 94 07/19/19 00:00 36.6 C 59 L 16 108/53 L 95 07/18/19 22:30 59 L 16 111/62 94 07/18/19 22:00 58 L 17 102/60 95 07/18/19 21:45 56 L 23 97 07/18/19 21:30 72 19 104/61 97 07/18/19 21:15 65 16 110/62 96 07/18/19 21:00 58 L 15 96 07/18/19 20:45 60 16 95 07/18/19 20:30 57 L 12 92/47 L 94 07/18/19 20:15 59 L 17 97/52 L 92 07/18/19 20:00 36.7 C 68 14 115/56 L 92 07/18/19 19:45 67 18 104/60 94 07/18/19 19:29 70 14 117/64 94 07/18/19 19:12 68 18 121/88 92 07/18/19 19:05 78 20 144/90 H 93 07/18/19 18:59 36.1 C L 81 20 141/88 H 96 07/18/19 15:17 36.7 C 66 12 123/82 95 07/18/19 14:17 68 3 L 119/85 07/18/19 13:17 118/62 07/18/19 13:13 75 11 L 107/82 97 07/18/19 12:17 75 13 137/85 95 07/18/19 12:08 36.9 C 70 18 126/84 93 07/18/19 12:02 79 17 128/84 93 07/18/19 12:00 36.7 C 81 17 94 07/18/19 11:17 98 H 17 152/125 H 93 07/18/19 10:34 83 25 H 139/86 94 07/18/19 09:17 69 16 128/77 93 Pain Intensity Neck: Pain Intensity: 3 Nose: Pain Intensity: 0 Notes Mental Status: alert / awake / arousable and participated in evaluation Patient Amnestic to Procedure: Yes Nausea / Vomiting: adequately controlled Pain: adequately controlled Airway Patency, RR, SpO2: stable & adequate BP & HR: stable & adequate Hydration State: stable & adequate Anesthetic Complications: no major complications apparent and Pt Satisfied with anesthetic care
--- NOTE | 2019-07-19 10:20 | Surgery Progress Note ---
Date of Service July 19, 2019 Assessment & Plan (1) Stroke due to stenosis of left carotid artery: Patient is 1 day after good left carotid enterectomy. His baseline neuro status is unchanged from preop. From a vascular standpoint he can be transferred or discharged to whatever facility deemed necessary. Thank you very much for letting us participate in the care of this patient. Subjective Patient is awake and alert. He is sitting upright in a chair. He does complain of some slight left-sided neck weakness along the incision. He denies any worsening of his weakness of his right hand from my preop. He denies any other focal deficits. His swallowing is not changed since preop. Physical Exam Neck: trachea midline Very mild left-sided neck swelling. The incision is dry and clean the left side of the neck. Neurologic: normal touch/pain/proprioception and CN's II-XI intact bilaterally Speech / Cognition: normal speech Motor/Sensory: + abnormal movement Psychiatric: A+Ox3, euthymic affect Results & Data Vital Signs (Past 12 Hours) Vital Signs Temp Pulse Pulse Resp BP BP Pulse Ox 07/19/19 08:05 36.8 C 90 18 110/77 92 07/19/19 08:00 54 L 07/19/19 07:00 59 L 21 94 07/19/19 06:00 63 18 94 07/19/19 05:00 60 17 107/63 93 07/19/19 04:00 36.8 C 57 L 16 113/68 93 07/19/19 03:00 78 16 110/57 L 89 L 07/19/19 02:00 56 L 18 108/59 L 94 07/19/19 01:00 55 L 16 102/61 94 07/19/19 00:00 36.6 C 59 L 16 108/53 L 95 07/18/19 22:30 59 L 16 111/62 94
[2019-07-19] MEDS: OXYCODONE/ACETAMINOPHEN 5mg/325mg TAB PO PRN ×2 (11:53→18:12)
[2019-07-19] MEDS: ENOXAPARIN INJ 40 MG/0.4 ML SYR SQ SCH (12:25)
--- NOTE | 2019-07-19 13:33 | Pharmacy Report ---
Pharmacy Glycemic Short Note 2 - Date of Service July 19, 2019 - Glycemic Short BSG Results (Last 24 hours): 07/18/19 07/18/19 07/19/19 19:54 23:30 04:03 Glucose POC Glucose 199 H 191 H 159 H 07/19/19 07/19/19 07/19/19 05:28 07:13 12:00 Glucose 167 H POC Glucose 176 H 191 H OUTPATIENT ANTIDIABETIC REGIMEN: * Glipizide 10mg PO daily * Metformin 1gm PO BID * A1c = 10.5% ASSESSMENT: 07/19 * BSGs have ranged 159-199 over the last 24 hrs * Pt was NPO most of the day yesterday and received 59 units of insulin in total * Would anticipate basal needs to be ~50 units per day or more * Would anticipate total daily insulin needs to be ~100+ * Will increase both basal and prandial insulin doses somewhat today taking this estimates into account 07/18 * Patient transitioned off insulin drip yesterday * Patient has received 109 units of insulin over the last 24 hrs (while tolerating a diet) * Fasting BSG 187 this AM with 30 units basal insulin on board and after receiving 14 units correctional insulin overnight - will continue to titrate up (once no longer NPO) * Surgery scheduled with Dr Villalba today (L CEA) * Based upon insulin needs over last 24 hrs, Novolog doses will also be uptitrat ed 07/17 * A1c resulted, consistent w/ poor glycemic control prior to admission on outpt oral hypoglycemic regimen * Insulin drip continues this AM, running at 2.5units/hr and BSGs in goal range * Pt is ordered a diet, will begin to transition to SQ regimen at this time * Initial basal/bolus regimen doses will be based upon moderate stress level and weight 2/4 * Type 2 diabetic admitted for ischemic stroke, now s/p tPA and admitted to ICU * BSGs in the 300s at this time * Pt is currently NPO * Will initiate IV insulin drip per protocol at this time given significant hyperglycemia and need for tight glycemic control in the setting of stroke. Quick control of hyperglycemia and avoidance of hypoglycemia can best be accomplished with IV insulin infusion PLAN FOR INPATIENT GLYCEMIC CONTROL: * Lantus SQ BID per the following scale initially: * 0 units if BSG less than 110 * 15 units if BSG 110-139 * 25 units if BSG 140 or greater * Novolog SQ ACHS and at 0200 * Goal range: 110-140mg/dL * Correction factor: 12 mg/dL * Carb ratio: 1 unit per 4 gm CHO consumed with meals PLAN FOR DISCHARGE: * Given poor glycemic control with outpt regimen, A1c greater than 10 and recent stroke, one should consider the use of metformin + basal insulin + (GLP1-Ag or prandial insulin) on discharge. However given patient's concerns with medica tion affordability, would lean more towards use of metformin + Relion 70/30 insulin on discharge. A conservative starting dose of 70/30 insulin may be 50 units w/ breakfast + 25 units with evening meal (total daily dose of 75units)
--- NOTE | 2019-07-19 14:25 | Hospitalist Progress Note ---
Date of Service July 19, 2019 Assessment & Plan (1) CVA (cerebral vascular accident): Continue stroke protocol; Transfer to floor on 07/19 Patient switched from atorvastatin to Zetia 10 mg p.o. daily because he tried 3 various statins and had several days after ingestion severe issues with his lower extremities and ability to walk. Patient reports having a muscle pains after taking statins. Patient tried simvastatin, pravastatin, and Crestor. CT scan of the head repeated and negative MRI noted for L frontal/parietal acute to subacute ischemia Continue aspirin 81mg P.O. for 3 weeks and start loading dose of Plavix 300 mg p.o. x1 and then 75 mg p.o. daily indefinitely unless side effects with bleeding and bruising or hemorrhaging. Continue personnel monitor; TTE: Left ventricular systolic function is normal. No regional wall motion abnormality noted. Ejection fraction 50 to 55%. Injection of contrast documented no intra-arterial shunt. Acupuncture at bedside with slight improvements to R UE movement noted after (2) Internal carotid artery stenosis: L ICA with 65% stenosis, thought to be origin of CVA s/p L CEA on 07/[address] Villalba (3) Type 2 diabetes mellitus: Poorly controlled as per his PCP on glipizide and metformin (placed on hold) A1c 10.5 Pt states medication noncompliance related to no insurance (4) Current smoker: Smoking cessation advice given. Nicotine patch 21mg/24hrs. Education packets ordered (5) Coronary artery disease: Restart ASA after 24 hours, start atorvastatin as above. Consider BB if remains tachycardic despite adequate hydration. (6) Hyperlipidemia: Patient switched from atorvastatin to Zetia 10 mg p.o. daily because he tried 3 various statins and had several days after ingestion severe issues with his lower extremities and ability to walk. Patient reports having a muscle pains after taking statins. Patient tried simvastatin, pravastatin, and Crestor. TG 331 LDL 118 HDL 26 (7) GERD (gastroesophageal reflux disease): OTC prilosec as outpt Protonix during admission (8) DVT prophylaxis: Chemical prophylaxis deferred until 24 hours s/p tPA. SCDs (9) Discharge planning issues: OT/ST recs for inpt rehab, PT recs pending Pt does not have insurance and does not qualify for [place] which will make rehab placement challenging, continue to work on this CM to assist with insurance issues Subjective Pt feels his speech is much better than yesterday. Not quite WNL, but better. His R UE is also with more movement and control today. Tolerating PO. Does have reflux today. He states he generally takes prilosec OTC for this. Pt denies fever, SOB, chest pain, abd pain, n/v/c/d, LE pain or swelling. Pt does have pain at operative site. Pt feels R hand galley stripper strength is improved s/p acupuncture. Control of wrist movements also improved. Review of Systems Review of Systems: Pertinent positives and negatives reviewed in HPI--all others negative Physical Exam Constitutional: WD/WN, vitals as above Eyes: normal visual churchill by confrontation and + anicteric sclerae Neck: normal visual inspection and trachea midline Respiratory: normal respiratory effort, lungs clear to auscultation Cardiovascular: Rate/Rhythm: regular rate and regular rhythm Gastrointestinal (Abdomen): Inspection/Auscultation: abdomen not distended Percussion/Palpation: abdomen soft; abdomen nontender Musculoskeletal: Head/Neck/Chest: normocephalic and head atraumatic Skin: no rashes, warm and dry Neurologic: awake; not confused Speech / Cognition: + abnormal speech (slurring is improved but still noted, dentures not in place); no expressive aphasia and normal cognition Motor/Sensory: + abnormal movement (improved movement at R wrist, improved R 2-5 digits movement, slight thumb) All further improved s/p acupuncture at bedside Psychiatric: A+Ox3, euthymic affect Results & Data ([facility]) Vital Signs (Past 12 Hours) Vital Signs Temp Pulse Pulse Resp BP BP Pulse Ox 07/19/19 12:06 37.1 C 91 H 20 121/74 92 07/19/19 10:46 91 H 07/19/19 08:05 36.8 C 90 18 110/77 92 07/19/19 08:00 54 L 07/19/19 07:00 59 L 21 94 07/19/19 06:00 63 18 94 07/19/19 05:00 60 17 107/63 93 07/19/19 04:00 36.8 C 57 L 16 113/68 93 07/19/19 03:00 78 16 110/57 L 89 L PG Care Time/CCT Total # of Minutes Spent Total Time Spent with Patient: Total time spent is greater than 50% in coordination of care (as documented) at patient's floor/unit and/or counseling patient: Coding Level of Care Code 02058 Subseq Hosp Care Lvl 3 Diagnoses CVA (cerebral vascular accident) I63.9 CVA mechanism: unspecified Internal carotid artery stenosis I65.22 Laterality: left Type 2 diabetes mellitus E11.59 Diabetes mellitus buttermaker continuous churn insulin use: without buttermaker continuous churn use Diabetes mellitus complication status: with circulatory complication Diabetes mellitus complication detail: with other circulatory complications Current smoker F17.200 Coronary artery disease I25.10 Coronary Disease-Associated Artery/Lesion type: [place] artery [place] vs. transplanted heart: [place] heart Associated angina: without angina Hyperlipidemia E78.5 GERD (gastroesophageal reflux disease) K21.9 DVT prophylaxis Z29.9 Discharge planning issues Z02.9 (1) CVA (cerebral vascular accident) CVA mechanism: unspecified Qualified Code(s): I63.9 - Cerebral infarction, unspecified (2) Internal carotid artery stenosis Laterality: left Qualified Code(s): I65.22 - Occlusion and stenosis of left carotid artery (3) Type 2 diabetes mellitus Diabetes mellitus group home insulin use: without buttermaker continuous churn use Diabetes mellitus complication status: with circulatory complication Diabetes mellitus complication detail: with other circulatory complications Qualified Code(s): E11.59 - Type 2 diabetes mellitus with other circulatory complications (4) Coronary artery disease Coronary Disease-Associated Artery/Lesion type: [place] artery [place] vs. transplanted heart: [place] heart Associated angina: without angina Qualified Code(s): I25.10 - Atherosclerotic heart disease of [place] coronary artery without angina pectoris
[2019-07-19] MEDS: PANTOprazole 40 MG TAB PO SCH (16:20)
[2019-07-19] MEDS: EZETIMIBE 10 MG TABLET PO SCH (16:25)
[2019-07-20] MEDS ORDERED: INSULIN ASPART 100 UNITS/ML 3 ML PEN SC SCH (02:00)
[2019-07-20] MEDS: OXYCODONE/ACETAMINOPHEN 5mg/325mg TAB PO PRN ×2 (02:17→15:31)
[2019-07-20 07:32] LABS: Basophils # (auto) 0.06 K/uL (0-0.2); Basophils % (auto) 0.7 %; Eosinophils # (auto) 0.23 K/uL (0-0.5); Eosinophils % (auto) 2.5 %; Hematocrit (blood only) 48.9 % (42-52); Hemoglobin 16.4 g/dL (14.0-18.0); Immature Granulocytes # (auto) 0.02 K/uL (0.00-0.02); Immature Granulocytes % (auto) 0.2 %; Lymphocytes # (auto) 2.25 K/uL (1.2-3.4); Lymphocytes % (auto) 24.9 %; Mean Corpuscular Hemoglobin 30.4 pg (25-34); Mean Corpuscular Hgb Conc 33.5 g/dL (32-36); Mean Corpuscular Volume 90.7 fL (80-100); Mean Platelet Volume 10.7 fL (7.4-10.4); Monocytes # (auto) 1.07 K/uL (0.11-0.59); Monocytes % (auto) 11.8 %; Neutrophils # (auto) 5.42 K/uL (1.4-6.5); Neutrophils % (auto) 59.9 %; Platelet Count 227 K/uL (130-400); RDW Coefficient of Variation 13.8 % (11.5-14.5); Red Blood Count 5.39 M/uL (4.7-6.1); White Blood Count 9.05 K/uL (4.8-10.8)
[2019-07-20 07:59] LABS: BUN Creatinine Ratio 15.1 (10-20); Calcium 9.2 mg/dl (8.5-10.1); Creatinine Clr Calc Pharmacy 113.9 ml/min; Est GFR (African American) 109.1; Est GFR (Non-African American) 94.1; Potassium 3.7 mmol/L (3.5-5.1)
[2019-07-20] MEDS: INSULIN ASPART 100 UNITS/ML 3 ML PEN SC SCH ×4 (08:30→21:24)
[2019-07-20] MEDS: UMECLIDINIUM BROMIDE 62.5MCG/BLISTER 7 PUFFS/INHALER INH SCH (08:31)
[2019-07-20] MEDS: INSULIN GLARGINE SOLOSTAR 100 UNITS/ML 3 ML PEN SC SCH ×2 (08:31→21:25)
[2019-07-20] MEDS: EZETIMIBE 10 MG TABLET PO SCH (08:32)
[2019-07-20] MEDS: PANTOprazole 40 MG TAB PO SCH (08:32)
[2019-07-20] MEDS: CLOPIDOGREL BISULFATE 75 MG TAB PO SCH ×3 (08:32→15:48)
[2019-07-20] MEDS: NICOTINE 21 MG/24 HR TDSY TD SCH (08:33)
[2019-07-20] MEDS: ASPIRIN 81 MG ECTAB PO SCH (08:33)
[2019-07-20] MEDS: ENOXAPARIN INJ 40 MG/0.4 ML SYR SQ SCH (12:32)
--- NOTE | 2019-07-20 14:32 | Pharmacy Report ---
Pharmacy Glycemic Short Note 2 - Date of Service July 20, 2019 - Glycemic Short BSG Results (Last 24 hours): 07/19/19 07/19/19 07/20/19 16:19 19:55 02:13 Glucose POC Glucose 201 H 230 H 103 H 07/20/19 07/20/19 07/20/19 06:46 07:38 11:49 Glucose 139 H POC Glucose 154 H 206 H OUTPATIENT ANTIDIABETIC REGIMEN: * Glipizide 10mg PO daily * Metformin 1gm PO BID * A1c = 10.5% ASSESSMENT: 07/20 * Mr. Martinez received 114 units of insulin yesterday * 50 units of basal * 64 units of bolus * BSGs ranged from 159-230 mg/dL * Fasting BSG is near goal - no changes to basal insulin * Post prandial BSGs are all elevated - tighten carb coverage 07/19 * BSGs have ranged 159-199 over the last 24 hrs * Pt was NPO most of the day yesterday and received 59 units of insulin in total * Would anticipate basal needs to be ~50 units per day or more * Would anticipate total daily insulin needs to be ~100+ * Will increase both basal and prandial insulin doses somewhat today taking this estimates into account 07/18 * Patient transitioned off insulin drip yesterday * Patient has received 109 units of insulin over the last 24 hrs (while tolerating a diet) * Fasting BSG 187 this AM with 30 units basal insulin on board and after receiving 14 units correctional insulin overnight - will continue to titrate up (once no longer NPO) * Surgery scheduled with Dr Villalba today (L CEA) * Based upon insulin needs over last 24 hrs, Novolog doses will also be uptitrated 2/5 * A1c resulted, consistent w/ poor glycemic control prior to admission on outpt oral hypoglycemic regimen * Insulin drip continues this AM, running at 2.5units/hr and BSGs in goal range * Pt is ordered a diet, will begin to transition to SQ regimen at this time * Initial basal/bolus regimen doses will be based upon moderate stress level and weight 2/4 * Type 2 diabetic admitted for ischemic stroke, now s/p tPA and admitted to ICU * BSGs in the 300s at this time * Pt is currently NPO * Will initiate IV insulin drip per protocol at this time given significant hyperglycemia and need for tight glycemic control in the setting of stroke. Quick control of hyperglycemia and avoidance of hypoglycemia can best be accomplished with IV insulin infusion PLAN FOR INPATIENT GLYCEMIC CONTROL: * Lantus SQ BID per the following scale: * 15 units if BSG less than 110 * 20 units if BSG 110-139 * 25 units if BSG 140 or greater * Novolog SQ ACHS * Goal range: 110-140mg/dL * Correction factor: 12 mg/dL * Carb ratio: 1 unit per 3.5 gm CHO consumed with meals PLAN FOR DISCHARGE: * Given poor glycemic control with outpt regimen, A1c greater than 10 and recent stroke, one should consider the use of metformin + basal insulin + (GLP1-Ag or prandial insulin) on discharge. However given patient's concerns with medication affordability, would lean more towards use of metformin + Relion 70/30 insulin on discharge. A conservative starting dose of 70/30 insulin may be 50 units w/ breakfast + 25 units with evening meal (total daily dose of 75units)
--- NOTE | 2019-07-20 14:42 | Hospitalist Progress Note ---
Date of Service July 20, 2019 Assessment & Plan (1) CVA (cerebral vascular accident): Patient switched from atorvastatin to Zetia 10 mg p.o. daily because he tried 3 various statins and had several days after ingestion severe issues with his lower extremities and ability to walk. Patient reports having a muscle pains after taking statins. Patient tried simvastatin, pravastatin, and Crestor. CT scan of the head repeated and negative MRI noted for L frontal/parietal acute to subacute ischemia Continue aspirin 81mg P.O. for 3 weeks and start loading dose of Plavix 300 mg p.o. x1 and then 75 mg p.o. daily indefinitely unless side effects with bleeding and bruising or hemorrhaging. Continue athletic monitor; TTE: Left ventricular systolic function is normal. No regional wall motion abnormality noted. Ejection fraction 50 to 55%. Injection of contrast documented no intra-arterial shunt. Acupuncture at bedside again with slight improvements to R UE movement noted after (2) Internal carotid artery stenosis: L ICA with 65% stenosis, thought to be origin of CVA s/p L CEA on 07/[address] Villalba (3) Type 2 diabetes mellitus: Poorly controlled as per his PCP on glipizide and metformin (placed on hold) A1c 10.5 Pt states medication noncompliance related to no insurance (4) Current smoker: Smoking cessation advice given. Nicotine patch 21mg/24hrs. Education packets ordered (5) Coronary artery disease: Restart ASA after 24 hours, start atorvastatin as above. Consider BB if remains tachycardic despite adequate hydration. (6) Hyperlipidemia: Patient switched from atorvastatin to Zetia 10 mg p.o. daily because he tried 3 various statins and had several days after ingestion severe issues with his lower extremities and ability to walk. Patient reports having a muscle pains after taking statins. Patient tried simvastatin, pravastatin, and Crestor. TG 331 LDL 118 HDL 26 (7) GERD (gastroesophageal reflux disease): OTC prilosec as outpt Protonix during admission (8) DVT prophylaxis: Chemical prophylaxis deferred until 24 hours s/p tPA. SCDs (9) Discharge planning issues: OT/ST recs for inpt rehab, PT recs pending Pt does not have insurance and does not qualify for MD which will make rehab placement challenging CM working to find [facility] care options CM to assist with insurance issues Subjective Pt continues to feel improvement in his speech, almost at baseline. His R UE is also with more movement and control today. Tolerating PO. Reflux is better. Pt denies fever, SOB, chest pain, abd pain, n/v/c/d, LE pain or swelling. Pt with ache at operative site. Pt again feels R hand risk intern strength is improved s/p acupuncture. Control of wrist movements and with some ability to extend index finger also improved. Review of Systems Review of Systems: Pertinent positives and negatives reviewed in HPI--all others negative Physical Exam Constitutional: WD/WN, vitals as above Eyes: normal visual churchill by confrontation and + anicteric sclerae Neck: normal visual inspection (L CEA incision site is clean and dry) and trachea midline Respiratory: normal respiratory effort, lungs clear to auscultation Cardiovascular: Rate/Rhythm: regular rate and regular rhythm Gastrointestinal (Abdomen): Inspection/Auscultation: abdomen not distended Percussion/Palpation: abdomen soft; abdomen nontender Musculoskeletal: Head/Neck/Chest: normocephalic and head atraumatic Skin: no rashes, warm and dry Neurologic: awake; not confused Speech / Cognition: + abnormal speech (slurring mostly resolved); no expressive aphasia and normal cognition Motor/Sensory: + abnormal movement (improved movement at R wrist, R 2-5 digits movement, slight thumb movement) Psychiatric: A+Ox3, euthymic affect Results & Data ([facility]) Vital Signs (Past 12 Hours) Vital Signs Temp Pulse Pulse Resp BP Pulse Ox 07/20/19 11:59 36.9 C 85 20 119/72 91 07/20/19 11:03 71 07/20/19 07:59 36.6 C 69 19 117/69 90 07/20/19 03:41 37.2 C 89 18 127/77 94 PG Care Time/CCT Total # of Minutes Spent Total Time Spent with Patient: Total time spent is greater than 50% in coordination of care (as documented) at patient's floor/unit and/or counseling patient: Coding Level of Care Code 34005 Subseq Hosp Care Lvl 2 Diagnoses CVA (cerebral vascular accident) I63.9 CVA mechanism: unspecified Internal carotid artery stenosis I65.22 Laterality: left Type 2 diabetes mellitus E11.59 Diabetes mellitus fdc insulin use: without ferry terminal agent use Diabetes mellitus complication status: with circulatory complication Diabetes mellitus complication detail: with other circulatory complications Current smoker F17.200 Coronary artery disease I25.10 Coronary Disease-Associated Artery/Lesion type: [place] artery [place] vs. transplanted heart: [place] heart Associated angina: without angina Hyperlipidemia E78.5 GERD (gastroesophageal reflux disease) K21.9 DVT prophylaxis Z29.9 Discharge planning issues Z02.9 (1) CVA (cerebral vascular accident) CVA mechanism: unspecified Qualified Code(s): I63.9 - Cerebral infarction, unspecified (2) Internal carotid artery stenosis Laterality: left Qualified Code(s): I65.22 - Occlusion and stenosis of left carotid artery (3) Type 2 diabetes mellitus Diabetes mellitus fdc insulin use: without ferry terminal agent use Diabetes mellitus complication status: with circulatory complication Diabetes mellitus complication detail: with other circulatory complications Qualified Code(s): E11.59 - Type 2 diabetes mellitus with other circulatory complications (4) Coronary artery disease Coronary Disease-Associated Artery/Lesion type: [place] artery [place] vs. transplanted heart: [place] heart Associated angina: without angina Qualified Code(s): I25.10 - Atherosclerotic heart disease of [place] coronary artery without angina pectoris
[2019-07-21] MEDS: OXYCODONE/ACETAMINOPHEN 5mg/325mg TAB PO PRN ×3 (00:12→20:44)
[2019-07-21 06:14] LABS: Basophils # (auto) 0.05 K/uL (0-0.2); Basophils % (auto) 0.7 %; Eosinophils # (auto) 0.21 K/uL (0-0.5); Eosinophils % (auto) 2.8 %; Hemoglobin 16.5 g/dL (14.0-18.0); Immature Granulocytes # (auto) 0.01 K/uL (0.00-0.02); Immature Granulocytes % (auto) 0.1 %; Lymphocytes # (auto) 2.01 K/uL (1.2-3.4); Lymphocytes % (auto) 26.4 %; Mean Corpuscular Hemoglobin 30.2 pg (25-34); Mean Corpuscular Hgb Conc 33.7 g/dL (32-36); Mean Corpuscular Volume 89.7 fL (80-100); Mean Platelet Volume 10.3 fL (7.4-10.4); Monocytes # (auto) 0.93 K/uL (0.11-0.59); Monocytes % (auto) 12.2 %; Neutrophils # (auto) 4.39 K/uL (1.4-6.5); Neutrophils % (auto) 57.8 %; Platelet Count 217 K/uL (130-400); RDW Coefficient of Variation 13.6 % (11.5-14.5); RDW Standard Deviation 44.7 fL (36.4-46.3); Red Blood Count 5.46 M/uL (4.7-6.1)
[2019-07-21 06:47] LABS: BUN Creatinine Ratio 19.4 (10-20); Creatinine Clr Calc Pharmacy 122.8 ml/min; Est GFR (African American) 112.5; Est GFR (Non-African American) 97.1; Potassium 3.7 mmol/L (3.5-5.1)
[2019-07-21] MEDS: EZETIMIBE 10 MG TABLET PO SCH (08:41)
[2019-07-21] MEDS: ASPIRIN 81 MG ECTAB PO SCH (08:41)
[2019-07-21] MEDS: UMECLIDINIUM BROMIDE 62.5MCG/BLISTER 7 PUFFS/INHALER INH SCH (08:42)
[2019-07-21] MEDS: PANTOprazole 40 MG TAB PO SCH (08:42)
[2019-07-21] MEDS: NICOTINE 21 MG/24 HR TDSY TD SCH (08:42)
[2019-07-21] MEDS: INSULIN GLARGINE SOLOSTAR 100 UNITS/ML 3 ML PEN SC SCH (08:43)
[2019-07-21] MEDS: INSULIN ASPART 100 UNITS/ML 3 ML PEN SC SCH ×2 (08:46→12:17)
[2019-07-21] MEDS: ENOXAPARIN INJ 40 MG/0.4 ML SYR SQ SCH (13:42)
[2019-07-21] MEDS: MAGNESIUM HYDROXIDE SUSP 30 ML UDC PO SCH (13:42)
--- NOTE | 2019-07-21 14:39 | Hospitalist Progress Note ---
Date of Service July 21, 2019 Assessment & Plan (1) CVA (cerebral vascular accident): Patient switched from atorvastatin to Zetia 10 mg p.o. daily because he tried 3 various statins and had several days after ingestion severe issues with his lower extremities and ability to walk. Patient reports having a muscle pains after taking statins. Patient tried simvastatin, pravastatin, and Crestor. CT scan of the head repeated and negative MRI noted for L frontal/parietal acute to subacute ischemia Continue aspirin 81mg P.O. for 3 weeks and start loading dose of Plavix 300 mg p.o. x1 and then 75 mg p.o. daily indefinitely unless side effects with bleeding and bruising or hemorrhaging. Stable to d/c tele TTE: Left ventricular systolic function is normal. No regional wall motion abnormality noted. Ejection fraction 50 to 55%. Injection of contrast documented no intra-arterial shunt. Acupuncture at bedside again with again improvements to R UE movement noted after (2) Internal carotid artery stenosis: L ICA with 65% stenosis, thought to be origin of CVA s/p L CEA on 07/[address] Villalba (3) Type 2 diabetes mellitus: Poorly controlled as per his PCP on glipizide and metformin (placed on hol d) A1c 10.5 Pt states medication noncompliance related to no insurance (4) Current smoker: Smoking cessation advice given. Nicotine patch 21mg/24hrs. Education packets ordered (5) Coronary artery disease: Restart ASA after 24 hours, start atorvastatin as above. Consider BB if remains tachycardic despite adequate hydration. (6) Hyperlipidemia: Patient switched from atorvastatin to Zetia 10 mg p.o. daily because he tried 3 various statins and had several days after ingestion severe issues with his lower extremities and ability to walk. Patient reports having a muscle pains after taking statins. Patient tried simvastatin, pravastatin, and Crestor. TG 331 LDL 118 HDL 26 (7) GERD (gastroesophageal reflux disease): OTC prilosec as outpt Protonix during admission (8) DVT prophylaxis: Chemical prophylaxis deferred until 24 hours s/p tPA. SCDs (9) Discharge planning issues: OT/ST recs for inpt rehab, PT recs pending Pt does not have insurance and does not qualify for MD which will make rehab placement challenging CM working to find [facility] care options CM to assist with insurance issues Subjective Pt continues to feel improvement with R UE. There is more movement and control again today. He states he woke this AM and was able to extend his fingers. Tolerating PO. Reflux is better. Pt denies fever, SOB, chest pain, abd pain, n/v, LE pain or swelling. Ongoing ache at operative site. Pt notes R hand claim adjuster strength, control of wrist movements, and ability to extend all fingers (not thumb) also improved s/p acupuncture. Notes no bowel movement since 07/16. Review of Systems Review of Systems: Pertinent positives and negatives reviewed in HPI--all others negative Physical Exam Constitutional: WD/WN, vitals as above Eyes: normal visual churchill by confrontation and + anicteric sclerae Neck: normal visual inspection (L CEA incision site is clean and dry) and trachea midline Respiratory: normal respiratory effort, lungs clear to auscultation Cardiovascular: Rate/Rhythm: regular rate and regular rhythm Gastrointestinal (Abdomen): Inspection/Auscultation: abdomen not distended Percussion/Palpation: abdomen soft; abdomen nontender Musculoskeletal: Head/Neck/Chest: normocephalic and head atraumatic Skin: no rashes, warm and dry Neurologic: awake; not confused Speech / Cognition: + abnormal speech (slur ring mostly resolved); no expressive aphasia and normal cognition Motor/Sensory: + abnormal movement (incr control at R wrist, R 2-5 digits extending, incr thumb movement) Psychiatric: A+Ox3, euthymic affect Results & Data ([facility]) Vital Signs (Past 12 Hours) Vital Signs Temp Pulse Pulse Resp BP Pulse Ox 07/21/19 12:34 36.6 C 66 19 106/65 92 07/21/19 12:25 37.0 C 57 L 18 129/69 94 07/21/19 08:15 36.5 C 85 18 156/80 H 93 07/21/19 07:11 74 07/21/19 03:23 36.8 C 78 18 96/58 L 90 PG Care Time/CCT Total # of Minutes Spent Total Time Spent with Patient: Total time spent is greater than 50% in coordination of care (as documented) at patient's floor/unit and/or counseling patient: Coding Level of Care Code 64877 Subseq Hosp Care Lvl 2 Diagnoses CVA (cerebral vascular accident) I63.9 CVA mechanism: unspecified Internal carotid artery stenosis I65.22 Laterality: left Type 2 diabetes mellitus E11.59 Diabetes mellitus retirement insulin use: without retirement use Diabetes mellitus complication status: with circulatory complication Diabetes mellitus complication detail: with other circulatory complicatio ns Current smoker F17.200 Coronary artery disease I25.10 Coronary Disease-Associated Artery/Lesion type: [place] artery [place] vs. transplanted heart: [place] heart Associated angina: without angina Hyperlipidemia E78.5 GERD (gastroesophageal reflux disease) K21.9 DVT prophylaxis Z29.9 Discharge planning issues Z02.9 (1) CVA (cerebral vascular accident) CVA mechanism: unspecified Qualified Code(s): I63.9 - Cerebral infarction, unspecified (2) Internal carotid artery stenosis Laterality: left Qualified Code(s): I65.22 - Occlusion and stenosis of left carotid artery (3) Type 2 diabetes mellitus Diabetes mellitus medical terminologist insulin use: without retirement use Diabetes mellitus complication status: with circulatory complication Diabetes mellitus complication detail: with other circulatory complications Qualified Code(s): E11.59 - Type 2 diabetes mellitus with other circulatory complications (4) Coronary artery disease Coronary Disease-Associated Artery/Lesion type: [place] artery [place] vs. transplanted heart: [place] heart Associated angina: without angina Qualified Code(s): I25.10 - Atherosclerotic heart disease of [place] coronary artery without angina pectoris
--- NOTE | 2019-07-21 15:17 | Pharmacy Report ---
Pharmacy Glycemic Short Note 2 - Date of Service July 21, 2019 - Glycemic Short BSG Results (Last 24 hours): 07/20/19 07/20/19 07/20/19 16:18 18:57 21:13 Glucose POC Glucose 184 H 252 H 240 H 07/21/19 07/21/19 07/21/19 05:58 07:37 11:44 Glucose 153 H POC Glucose 164 H 213 H OUTPATIENT ANTIDIABETIC REGIMEN: * Glipizide 10mg PO daily * Metformin 1gm PO BID * A1c = 10.5% ASSESSMENT: 07/21: * Mr. Martinez received 122 units of insulin yesterday * 50 units of basal * 72 units of bolus * BSGs ranged from 103 - 240 mg/dL * Fasting BSG is above goal. Lantus dose will be increased. Current regimen is heavily bolus insulin. * Will also tighten Novolog carb ratio * Discharge plans are still uncertain - case management attempting to obtain approval for [facility] 07/20 * Mr. Martinez received 114 units of insulin yesterday * 50 units of basal * 64 units of bolus * BSGs ranged from 159-230 mg/dL * Fasting BSG is near goal - no changes to basal insulin * Post prandial BSGs are all elevated - tighten carb coverage 07/19 * BSGs have ranged 159-199 over the last 24 hrs * Pt was NPO most of the day yesterday and received 59 units of insulin in total * Would anticipate basal needs to be ~50 units per day or more * Would anticipate total daily insulin needs to be ~100+ * Will increase both basal and prandial insulin doses somewhat today taking this estimates into account 07/18 * Patient transitioned off insulin drip yesterday * Patient has received 109 units of insulin over the last 24 hrs (while tolerating a diet) * Fasting BSG 187 this AM with 30 units basal insulin on board and after rec eiving 14 units correctional insulin overnight - will continue to titrate up (once no longer NPO) * Surgery scheduled with Dr Villalba today (L CEA) * Based upon insulin needs over last 24 hrs, Novolog doses will also be uptitrated PLAN FOR INPATIENT GLYCEMIC CONTROL: * Lantus SQ BID per the following scale: * 15 units if BSG less than 110 * 25 units if BSG 110-139 * 30 units if BSG 140 or greater * Novolog SQ ACHS * Goal range: 110-140mg/dL * Correction factor: 12 mg/dL * Carb ratio: 1 unit per 3 gm CHO consumed with meals PLAN FOR DISCHARGE: * Given poor glycemic control with outpt regimen, A1c greater than 10 and recent stroke, one should consider the use of metformin + basal insulin + (GLP1-Ag or prandial insulin) on discharge. However given patient's concerns with medication affordability, would lean more towards use of metformin + Relion 70/30 insulin on discharge. A conservative starting dose of 70/30 insulin may be 50 units w/ breakfast + 25 units with evening meal (total daily dose of 75units)
[2019-07-21] MEDS: INSULIN ASPART 100 UNITS/ML VIAL SC SCH ×2 (17:17→20:47)
[2019-07-21] MEDS: INSULIN GLARGINE 100 UNIT/ML VIAL SC SCH (20:45)
[2019-07-22] MEDS: ASPIRIN 81 MG ECTAB PO SCH (07:58)
[2019-07-22] MEDS: NICOTINE 21 MG/24 HR TDSY TD SCH (07:58)
[2019-07-22] MEDS: UMECLIDINIUM BROMIDE 62.5MCG/BLISTER 7 PUFFS/INHALER INH SCH (07:58)
[2019-07-22] MEDS: CLOPIDOGREL BISULFATE 75 MG TAB PO SCH (08:00)
[2019-07-22] MEDS: PANTOprazole 40 MG TAB PO SCH (08:00)
[2019-07-22] MEDS: EZETIMIBE 10 MG TABLET PO SCH (08:00)
[2019-07-22] MEDS: INSULIN GLARGINE 100 UNIT/ML VIAL SC SCH ×2 (08:12→20:46)
[2019-07-22] MEDS: INSULIN ASPART 100 UNITS/ML VIAL SC SCH ×4 (08:15→20:44)
[2019-07-22] MEDS: OXYCODONE/ACETAMINOPHEN 5mg/325mg TAB PO PRN (08:22)
[2019-07-22] MEDS: MAGNESIUM HYDROXIDE SUSP 30 ML UDC PO SCH (12:16)
[2019-07-22] MEDS: ENOXAPARIN INJ 40 MG/0.4 ML SYR SQ SCH (12:20)
--- NOTE | 2019-07-22 17:41 | Hospitalist Progress Note ---
Date of Service July 22, 2019 Assessment & Plan (1) CVA (cerebral vascular accident): MRI with L frontal/parietal acute to subacute stroke. Suspected to be from L ICA stenosis. Continue aspirin 81mg P.O. for 3 additional week and plavix 75 mg p.o. daily indefinitely for secondary stroke prevention. Echo w/o thrombus or PFO. Carotid stenosis of 65% on left s/p CEA by Dr Villalba; has recovered well from such. Unfortunately is intolerant to statins; even tried one this admission; s ignificant myalgias w/ such. Statin stopped. Zetia substituted. (2) Internal carotid artery stenosis: L ICA with 65% stenosis, thought to be origin of stroke. s/p L CEA on 07/[address] Villalba. Recovering well from such. Cont zetia. Cont asa/plavix. (3) Type 2 diabetes mellitus: Poorly controlled on oral meds pre-hospitalization. A1c 10.5%. Known medication noncompliance related to no insurance. Now controlled on basal-bolus SC regimen of insulin. 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 (4) Current smoker: Cont Nicotine patch 21mg/24hrs. Education given and encouraged to quit. (5) Coronary artery disease: Cont zetia Cont asa Cont plavix ideally should be on beta roosevelt even low-dose (6) Hyperlipidemia: Patient switched from atorvastatin to Zetia 10 mg p.o. daily due to myalgias. Patient reports mylagias after taking statins. Previous trials: simvastatin, pravastatin, and Crestor. TG 331 LDL 118 HDL 26 Consider fish oil or fibrate therapy for low HDL and high trigs. (7) GERD (gastroesophageal reflux disease): PPI (8) DVT prophylaxis: lovenox daily (9) Discharge planning issues: [facility] Admission and Anticipated Discharge Date Admission Date: July 16, 2019 Anticipated date of discharge: 07/23/19 Subjective patient overall feels that he is improving. right handgrip is largest deficit but that, too, is improving. speech is improved - friends that were visiting commented how much this has gotten better. no swallowing issues. still wants rehab after d/c. Review of Systems Constitutional: no fever Respiratory: no cough and no dyspnea Cardiovascular: no chest pain Physical Exam Constitutional: no acute distress, not ill appearing and no altered mental status ENMT: external ear and nose normal, oropharynx normal Neck: incision left neck clean; mild ecchymoses present from recent CEA Respiratory: normal respiratory effort, lungs clear to auscultation Cardiovascular: Rate/Rhythm: regular rate and regular rhythm Heart Sounds: normal S1 and normal S2; no murmur Vessels: posterior tibial pulses present and dorsalis pedis pulses present; no JVD Extremities: no edema Gastrointestinal (Abdomen): normal bowel sounds, soft, nontender, no hepatosplenomegaly Neurologic: + focal motor deficit (handgrip Right 3/5; biceps/triceps near 5/5; b/l legs 5/5) Speech / Cognition: normal speech (clear, fluent ) Motor/Sensory: + pronator drift (right ) Psychiatric: A+Ox3, euthymic affect Results & Data ([facility]) Vital Signs (Past 12 Hours) Vital Signs Temp Pulse Resp BP Pulse Ox 07/22/19 15:49 36.8 C 94 H 20 129/81 94 07/22/19 07:34 36.6 C 83 20 151/78 H 91 Laboratory Results Laboratory Results - last 24 hr 07/21/19 07/22/19 07/22/19 20:13 01:26 07:47 POC Glucose 174 H 165 H 184 H 07/22/19 07/22/19 11:52 16:49 POC Glucose 156 H 154 H PG Care Time/CCT Total # of Minutes Spent Total Time Spent with Patient: Total time spent is greater than 50% in coordination of care (as documented) at patient's floor/unit and/or counseling patient: Coding Level of Care Code 98657 Subseq Hosp Care Lvl 2 Diagnoses CVA (cerebral vascular accident) I63.9 CVA mechanism: unspecified Internal carotid artery stenosis I65.22 Laterality: left Type 2 diabetes mellitus E11.59 Diabetes mellitus complication detail: with other circulatory complications Diabetes mellitus complication status: with circulatory complication 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 transplanted heart: [place] heart Qualified Code(s): I25.10 - Atherosclerotic heart disease of [place] coronary artery without angina pectoris (3) Internal carotid artery stenosis Laterality: left Qualified Code(s): I65.22 - Occlusion and stenosis of left carotid artery (4) CVA (cerebral vascular accident) CVA mechanism: unspecified Qualified Code(s): I63.9 - Cerebral infarction, u nspecified
[2019-07-23] MEDS: INSULIN ASPART 100 UNITS/ML VIAL SC SCH ×3 (00:14→12:15)
[2019-07-23] MEDS: OXYCODONE/ACETAMINOPHEN 5mg/325mg TAB PO PRN (00:19)
[2019-07-23 06:07] LABS: BUN Creatinine Ratio 22.4 (10-20); Calcium 8.9 mg/dl (8.5-10.1); Creatinine Clr Calc Pharmacy 116.7 ml/min; Est GFR (African American) 110.2; Est GFR (Non-African American) 95.1; Magnesium 2.3 mg/dl (1.8-2.4); Potassium 3.6 mmol/L (3.5-5.1)
[2019-07-23] MEDS ORDERED: bisacodyL 5 MG TABEC PO ONE (07:00)
[2019-07-23] MEDS: UMECLIDINIUM BROMIDE 62.5MCG/BLISTER 7 PUFFS/INHALER INH SCH (07:53)
[2019-07-23] MEDS: ASPIRIN 81 MG ECTAB PO SCH (07:53)
[2019-07-23] MEDS: MAGNESIUM HYDROXIDE SUSP 30 ML UDC PO SCH (07:53)
[2019-07-23] MEDS: NICOTINE 21 MG/24 HR TDSY TD SCH (07:53)
[2019-07-23] MEDS: EZETIMIBE 10 MG TABLET PO SCH (07:54)
[2019-07-23] MEDS: PANTOprazole 40 MG TAB PO SCH (07:54)
[2019-07-23] MEDS: CLOPIDOGREL BISULFATE 75 MG TAB PO SCH (07:54)
[2019-07-23] MEDS ORDERED: INSULIN GLARGINE 100 UNIT/ML VIAL SC SCH (09:00)
[2019-07-23] MEDS ORDERED: POLYETHYLENE (MIRALAX) 17 GM PACK PO SCH (09:00)
--- NOTE | 2019-07-23 09:24 | Pharmacy Report ---
Pharmacy Glycemic Short Note 2 - Date of Service July 23, 2019 - Glycemic Short BSG Results (Last 24 hours): 07/22/19 07/22/19 07/22/19 11:52 16:49 20:22 Glucose POC Glucose 156 H 154 H 206 H 07/23/19 07/23/19 07/23/19 00:02 04:14 05:26 Glucose 136 H POC Glucose 191 H 175 H 07/23/19 07:46 Glucose POC Glucose 149 H OUTPATIENT ANTIDIABETIC REGIMEN: * Glipizide 10mg PO daily * Metformin 1gm PO BID * A1c = 10.5% ASSESSMENT: 07/23: * Patient is currently receiving an average of 120 units of insulin per day * 60 units of basal insulin * 55-95 units of prandial/correctional insulin * BSGs ranging 136-206 over the past 24hrs * Risk factors for insulin resistance are CONSTANT over the past 24hrs * Anticipating insulin regimen will need INCREASED for the next 24hrs d/t : * AM Fasting BSG = 149, and patient has been requiring 8-10 units of correctional between HS and overnight; therefore Basal insulin needs increased 07/21: * Mr. Martinez received 122 units of insulin yesterday * 50 units of basal * 72 units of bolus * BSGs ranged from 103 - 240 mg/dL * Fasting BSG is above goal. Lantus dose will be increased. Current regimen is heavily bolus insulin. * Will also tighten Novolog carb ratio * Discharge plans are still uncertain - case management attempting to obtain approval for [facility] 07/20 * Mr. Martinez received 114 units of insulin yesterday * 50 units of basal * 64 units of bolus * BSGs ranged from 159-230 mg/dL * Fasting BSG is near goal - no changes to basal insulin * Post prandial BSGs are all elevated - tighten carb coverage 07/19 * BSGs have ranged 159-199 over the last 24 hrs * Pt was NPO most of the day yesterday and received 59 units of insulin in total * Would anticipate basal needs to be ~50 units per day or more * Would anticipate total daily insulin needs to be ~100+ * Will increase both basal and prandial insulin doses somewhat today taking this estimates into account 07/18 * Patient transitioned off insulin drip yesterday * Patient has received 109 units of insulin over the last 24 hrs (while tolerating a diet) * Fasting BSG 187 this AM with 30 units basal insulin on board and after receiving 14 units correctional insulin overnight - will continue to titrate up (once no longer NPO) * Surgery scheduled with Dr Villalba today (L CEA) * Based upon insulin needs over last 24 hrs, Novolog doses will also be uptitrated PLAN FOR INPATIENT GLYCEMIC CONTROL: * Lantus - increase by ~15% * 34 units BID * Novolog SQ ACHS - no change * Goal range: 110-140mg/dL * Correction factor: 12 mg/dL * Carb ratio: 1 unit per 3 gm CHO consumed with meals PLAN FOR DISCHARGE: * Given poor glycemic control with outpt regimen, A1c greater than 10 and recent stroke, one should consider the use of metformin + basal insulin + (GLP1-Ag or prandial insulin) on discharge. However given patient's concerns with medication affordability, would lean more towards use of metformin + Relion 70/30 insulin on discharge. A conservative starting dose of 70/30 insulin may be 50 units w/ breakfast + 25 units with evening meal (total daily dose of 75units) * Note: CDE notified me today that patient now hesitant about doing insulin post-discharge. Discussed with provider at [facility]. Recommend to still continue insulin on discharge to [facility] and they can either continue or change to orals on discharge, depending on patient preference at that time.
[2019-07-23] MEDS ORDERED: SOD PHOSPHATE/SOD BIPHOSPHATE ENEMA 132 ML BTL PR PRN (11:59)
[2019-07-23] MEDS ORDERED: bisacodyL 10 MG SUPP PR STA (11:59)
[2019-07-23] MEDS: ENOXAPARIN INJ 40 MG/0.4 ML SYR SQ SCH (13:52)
[2019-07-23] MEDS ORDERED: STROKE PATIENT DISCHARGE STA (14:31)
--- NOTE | 2019-07-23 14:37 | Discharge Summary ---
Date of Service July 23, 2019 Admission HPI Per Admitting Provider Carl Martinez is a 64 year old male smoker with type 2 diabetes who presented to the ER with right hand numbness and weakness slurred speech which started after throwing/tying tarps over his truck at around 9:30am today. He reports never having similar symptoms before and no known stroke in the past but NM approximately 10 years ago. Current smoker 1.5 packs/day and uncontrolled diabetes as risk factors. Since coming to the ER he has noticed some mild improvement in his right arm weakness but no real change in his speech. He takes an aspirin a day ever since his NM but not on statin. He also notes a recent fall 2 week prior when he slipped backwards on the ice and fell on his left arm/chest for which he did not seek medical attention. He did not hit his head or neck directly but resultant whiplash action caused neck pain since then with only some mild improvement. Discussed with his primary care physician (Dr Connor Bauer) on vacation although his office is closed currently and no one has access to his chart from memory he notes the patient is a poorly controlled diabetic mainly due to lack of insurance and ability to pay for medication. He had an NM with emergent stent approximately 10 years ago. He is a heavy smoker. Element of COPD however not on any regular inhalers due to cost. Discharge Exam Constitutional no acute distress, not ill appearing and no altered mental status ENMT external ear and nose normal, oropharynx normal Respiratory normal respiratory effort, lungs clear to auscultation Cardiovascular Rate/Rhythm: regular rate and regular rhythm Heart Sounds: normal S1 and normal S2; no murmur Vessels: posterior tibial pulses present and dorsalis pedis pulses present; no JVD Extremities: no edema Gastrointestinal (Abdomen) normal bowel sounds, soft, nontender, no hepatosplenomegaly Neurologic + focal motor deficit (handgrip Right 3/5; biceps/triceps near 5/5; b/l legs 5/5) Speech / Cognition: normal speech (clear, fluent ) Motor/Sensory: + pronator drift (right ) Psychiatric A+Ox3, euthymic affect Discharge Data Allergies Allergy/AdvReac Type Severity Reaction Status Date / Time Penicillins Allergy Unknown Unverified 07/16/19 12:09 atorvastatin [From Lipitor] AdvReac Unknown Verified 07/17/19 12:45 Consultations 07/16/19 12:38 ED Decision to Admit Stat 07/16/19 13:51 Consult Case Management - Discharge Planning Routine Consult Airline Flight Attendant Routine Consult Neurology Routine 07/16/19 17:55 Consult Vascular Surgery Routine Procedures Performed Operation Date: 07/18/19 13:00 Actual Procedures p Left Carotid Endarterectomy(Left) - Ryder Villalba MD Ordered Studies 07/16/19 10:59 CT head/brain wo con Stat 07/16/19 11:44 CT angio head w con Stat CT angio neck with con Stat 07/16/19 14:01 MR brain wo/w con Urgent 07/17/19 12:00 CT head/brain wo con Routine Hospital Course (1) CVA (cerebral vascular accident): MRI with L frontal/parietal acute to subacute stroke. Suspected to be from L ICA stenosis. Continue aspirin 81mg P.O. for 3 additional week and plavix 75 mg p.o. daily indefinitely for secondary stroke prevention. Echo w/o thrombus or PFO. Carotid stenosis of 65% on left s/p CEA by Dr Villalba; has recovered well from such. Unfortunately is intolerant to statins; even tried one this admission; significant myalgias w/ such. Statin stopped. Zetia substituted. (2) Internal carotid artery stenosis: L ICA with 65% stenosis, thought to be origin of stroke. s/p L CEA on 07/[address] Villalba. Recovering well from such. Cont zetia. Cont asa/plavix. (3) Type 2 diabetes mellitus: Poorly controlled on oral meds pre-hospitalization. A1c 10.5%. Known medication noncompliance related to no insurance. Now controlled on basal-bolus SC regimen of insulin. 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 (4) Current smoker: Cont Nicotine patch 21mg/24hrs. Education given and encouraged to quit. (5) Coronary artery disease: Cont zetia Cont asa Cont plavix ideally should be on beta roosevelt even low-dose (6) Hyperlipidemia: Patient switched from atorvastatin to Zetia 10 mg p.o. daily due to myalgias. Patient reports mylagias after taking statins. Previous trials: simvastatin, pravastatin, and Crestor. TG 331 LDL 118 HDL 26 Consider fish oil or fibrate therapy for low HDL and high trigs. (7) GERD (gastroesophageal reflux disease): PPI (8) DVT prophylaxis: lovenox daily (9) Discharge planning issues: [facility] Discharge Plan Discharge Items Patient Disposition: Transfer Inpatient Rehab Fac Reason For Visit: RIGHT HAND WEAKNESS Discharge Diagnosis: 1. left-sided stroke 2. left-sided carotid stenosis with surgery by Dr Villalba to open the artery up 3. constipation 4. diabetes Activity: Per Instructions section Bathing Comment: see surgical instructions Driving/Machine Use: no driving until cleared by neurology and vascular surgery Non-emergency contact: Primary Care Provider, Surgeon and Neurologist Call non-emergency contact if: you have any medication questions, your symptoms worsen, you have a fever, your wound has increased redness, your wound has increased drainage and your wound pain has increased Follow-up/Referrals: Ryder Villalba MD [Physician] - (follow-up in two weeks post discharge for incision check ) PCP,NO [Primary Care Provider] - Diet: Carb Consistent or DM2 and Heart Healthy Addtl Attending Provider Instructions: From Arcenio Valadez - hospitalist: 1. aspirin 81mg daily x 1 additional month then discontinue. 2. plavix 75mg daily INDEFINITELY. 3. blood sugar checks before meals and at bedtime. 4. follow-up -- see separate section. If patient does not follow up with [facility] neurology prior to traveling back to [place] then recommend f/u with Neurology in [place] in 1 month. 5. Stroke instructions -- Risk Factors for Stroke: You can reduce your chances of stroke by working with your medical provider to adopt a healthy lifestyle. Some specific ways to lower your chance of stroke are: * If you are a smoker, now is the time to stop smoking cigarettes * If you are diabetic, improve the control of your blood sugars * Avoid excessive amounts of alcohol * Control high blood pressure * Lose weight if you are overweight * Be sure to lead an active lifestyle * Eat a healthy diet low in salt, cholesterol and fat You should know about other risk factors for stroke that you are unable to control. These include: * Age 55 years or older * Male gender * Certain racial groups: , or / * Family History of Stroke, Mini stroke or Heart Attack * Sickle Cell Disease Who to Call and When: Medical Emergencies: Call 911 immediately if you experience any of the following warning signs and symptoms of Stroke: * Sudden numbness or weakness of the face, arm or leg, especially on one side of the body * Sudden confusion, trouble speaking or understanding * Sudden trouble seeing in one or both eyes * Sudden trouble walking, dizziness, loss of balance or coordination * Sudden severe headache with no cause Do not delay calling 911 if you experience any warning signs or symptoms of a stroke. Delay in seeking medical attention may affect what treatments can be given to you. LASTLY - NO DRIVING UNTIL CLEARED BY VASCULAR SURGERY AND NEUROLOGY Addtl Calender Operator Provider Instructions: SPECIAL CARE INSTRUCTIONS from Dr Villalba, vascular surgery -- Medications: * Continue to take Aspirin as directed. Incision Care: * You may shower, but do not rub incision. You may let the warm soapy water run over it. Be sure to dry the incision well after bathing. * Do not shave directly over the incision until it is healed. * DO NOT IMMERSE THE INCISION IN A TUB/POOL/etc. UNTIL HEALED. Restrictions: * Do not drive for at least one week or if you are still taking any narcotic pain medication. * Do not lift anything heavier than a gallon of milk for one week after going home. Possible Complications: * Numbness - It is normal to have some numbness around the incision. Numbness can extend beyond the incision to areas of the neck, ear and face. The numbness is due to bruising of nerves during the surgery and will gradually improve over a period of months. * Hoarseness/Difficulty Speaking and Swallowing - The bruising of nerves in the neck can also cause a hoarse voice, difficulty speaking or swallowing. This may improve over time, HOWEVER, if it continues for more than a few days please contact our office ([phone]). * Excessive Swelling - There will be some swelling immediately after surgery which usually resolves within one week. If you notice that the swelling is getting worse, notify your surgeon ([phone]). * Drainage/Bleeding - If there is any drainage or bleeding, it should be a very small amount (less than a teaspoon per day). If you have excessive bleeding or drainage from the incision, call your surgeon ([phone]) right away. ACTIVATION OF EMERGENCY MEDICAL SYSTEM: Call 911, immediately, if you experience any of the following: Warning Signs and Symptoms of Stroke: * Sudden numbness or weakness of the face, arm or leg, especially on one side of the body * Sudden confusion, trouble speaking or understanding * Sudden trouble seeing in one or both eyes * Sudden trouble walking, dizziness, loss of balance or coordination * Sudden severe headache with no cause Do not delay calling 911 if you experience any warning signs or symptoms of a stroke. Delay in seeking medical attention may affect what treatments can be given to you. Risk Factors for Stroke: You can reduce your chances of stroke by working with your medical provider to adopt a healthy lifestyle. Some specific ways to lower your chance of stroke are: * If you are a smoker, now is the time to stop smoking cigarettes * If you are diabetic, improve the control of your blood sugars * Avoid excessive amounts of alcohol * Control high blood pressure * Lose weight if you are overweight * Be sure to lead an active lifestyle * Eat a healthy diet low in salt, cholesterol and fat You should know about other risk factors for stroke that you are unable to control. These include: * Age 55 years or older * Male gender * Certain racial groups: , or / * Family History of Stroke, Mini stroke or Heart Attack * Sickle Cell Disease You will be receiving a call from the Vascular Surgery Nurse after you are discharged. FOLLOW UP VISIT: Call [phone] to schedule a follow up appointment in 2 weeks post-discharge Pending Studies at Discharge: No Stand-Alone Forms: My [facility] Skilled Items Patient informed of condition?: Yes DNR: No Discharge Level of Care: Acute rehab Communicable Disease: No Discharge Prognosis: Improving Lines: None Urinary Catheter: No Medications and DC Order Prescriptions: New Lantus U-100 Insulin 100 unit/mL Solution 34 unit SC BID Qty: 1 RF: 0 polyethylene glycol 3350 [Miralax] 17 gram Powder In Packet 17 g PO BID Qty: 60 RF: 0 clopidogrel 75 mg Tablet 75 mg PO QAM Qty: 30 RF: 11 insulin aspart U-100 [Novolog U-100 Insulin aspart] 100 unit/mL Solution 0 unit SC ACHS Qty: 1 RF: 0 pantoprazole 40 mg Tablet,Delayed Release (Dr/Ec) 40 mg PO QAM Qty: 30 RF: 0 nicotine [Nicoderm CQ] 21 mg/24 hr Patch 24 Hour 21 mg transdermal QAM Qty: 30 RF: 0 enoxaparin 40 mg/0.4 mL Syringe 40 mg subcut Q24H Qty: 14 RF: 0 ezetimibe [Zetia] 10 mg Tablet 10 mg PO QAM Qty: 30 RF: 11 Incruse Ellipta 62.5 mcg/actuation Blister With Device 1 puff inhalation QAM Qty: 30 RF: 0 senna 8.6 mg capsule 17.2 mg PO DAILY Qty: 60 RF: 0 Continued aspirin 81 mg Tablet,Delayed Release (Dr/Ec) 81 mg PO DAILY RF: 0 Discontinued glipizide 10 mg Tablet 10 mg PO DAILY RF: 0 metformin 1,000 mg Tablet 1,000 mg PO BID RF: 0 Discharge Orders: Discharge Order (Routine); Ordered 07/23/19 Ordered By: Arcenio Valadez Admission Data Admit Date/Time: 07/16/19 12:45 Attending Provider: Arcenio Valadez Admit Provider: Arcenio Cotton Primary Care Provider: PCP,NO Other Providers: [facility] ; Arcenio Cotton ; Levi Cook ; Brain Ulloa ; Ryder Villalba Other Interventions: Discharge Summary Assessment (RN) Last Done: 07/23/19 12:40 Coding Diagnoses CVA (cerebral vascular accident) I63.9 CVA mechanism: unspecified Internal carotid artery stenosis I65.22 Laterality: left Type 2 diabetes mellitus E11.59 Diabetes mellitus senior living insulin use: without senior living use Diabetes mellitus complication status: with circulatory complication Diabetes mellitus complication detail: with other circulatory complications Current smoker F17.200 Coronary artery disease I25.10 Coronary Disease-Associated Artery/Lesion type: [place] artery [place] vs. transplanted heart: [place] heart Associated angina: without angina Hyperlipidemia E78.5 GERD (gastroesophageal reflux disease) K21.9 DVT prophylaxis Z29.9 Discharge planning issues Z02.9
== END 2019-07-23 14:45 | DRG 39 ==
LOC: ED 11:04 → 1E 12:45 → SUATTDRO 12:45 → 1E 13:40 → 2N 07-19 10:26